=== PATIENT | female | born 1955 | race Caucasian/White ===

== ENCOUNTER 2020-05-19 10:09 | Outpatient (REF) | payer OTHER, SELFPAY ==
--- NOTE | 2020-05-19 10:13 | MM_ITS ---
EXAMINATION: MM SCREENING DIGITAL BREAST TOMOSYNTHESIS, BILATERAL CLINICAL INFORMATION: Screening. Asymptomatic. The lifetime risk of breast cancer based on the Tyrer-Cuzick Model is 5%. COMPARISON: Mammography: 05/14/2019, 05/08/2018, 05/02/2017 TECHNIQUE: Digital breast tomosynthesis is performed in both the craniocaudal and mediolateral oblique views along with computer-aided detection (CAD). Synthesized 2D images are generated from the tomosynthesis. FINDINGS: There are scattered areas of fibroglandular density (ACR BI-RADS breast composition Category b). There are no significant masses, abnormal calcifications, or other abnormalities. Parenchymal pattern is similar to prior studies. No significant changes. MM/MM tomosynthesis screening BI IMPRESSION: No mammographic evidence of malignancy. ASSESSMENT: BI-RADS 1: Negative RECOMMENDATION: Routine annual mammography screening. This patient's information was entered into a reminder system with a target due date for their next mammogram.
== END 2020-05-19 10:10 | disposition home or self-care (01) ==
LOC: HO.MAMMO 10:09
PROVIDERS: PCP Internal Medicine; Visit Provider Internal Medicine
DX: Z12.31 Encounter for screening mammogram for malignant neoplasm of breast (principal)
CPT/HCPCS: 77063; 77067

== ENCOUNTER 2020-06-29 07:11 | Outpatient (REF) | payer OTHER, SELFPAY ==
[2020-06-29 11:15] LABS: MANUAL DIFF FLAG NO
[2020-06-29 11:21] LABS: Basophils Percent Auto 0.2 % (0-2); Eosinophils Absolute Auto 0.1 X10*3/uL (0.0-0.4); Eosinophils Percent Auto 2.4 % (0-4); Hematocrit 42.7 % (37-47); Hemoglobin 13.8 g/dl (12.0-16.0); Imm Gran Abs Auto 0.01 X10*3/uL (0.00-0.03); Imm Gran Pct Auto 0.2 % (0.0-0.4); Lymphocytes Absolute Auto 1.7 X10*3/uL (1.2-4.9); Lymphocytes Percent Auto 37.9 % (20-40); Mean Corpuscular HGB Conc 32.3 g/dl (31.0-35.0); Mean Corpuscular Hemoglobin 29.9 pg (27.0-33.0); Mean Corpuscular Volume 92.6 fL (80-98); Mean Platelet Volume 10.2 fL (9.4-12.3); Monocytes Absolute Auto 0.4 X10*3/uL (0.1-1.2); Monocytes Percent Auto 7.7 % (2-11); Neutrophils Absolute Auto 2.3 X10*3/uL (2.0-8.3); Neutrophils Percent Auto 51.6 % (45-73); Platelet Count 269 X10*3/uL (160-400); Red Blood Count 4.61 X10*6/uL (4.20-5.50); Red Cell Distribution Width 12.9 % (11.0-16.0); White Blood Count 4.5 X10*3/uL (4.8-10.8)
[2020-06-29 12:07] LABS: Vitamin D 25-OH Total 38.5 ng/mL (>30)
[2020-06-29 12:20] LABS: Alanine Aminotransferase 24 U/L (0-31); Albumin Level 4.4 g/dL (3.5-5.0); Alkaline Phosphatase 67 U/L (39-117); Anion Gap 12 (12-20); Aspartate Amino Transferase 22 U/L (5-31); Bilirubin Total 1.1 mg/dL (0.0-1.0); Blood Urea Nitrogen 15 mg/dL (9-16); Calcium 9.2 mg/dL (8.4-10.2); Carbon Dioxide 30 mmol/L (22-29); Chloride 105 mmol/L (96-108); Cholesterol 224 mg/dL; Estimated Glomerular Filt Rate > 60; Glucose Fasting 77 mg/dL (60-99); HDL Cholesterol 60 mg/dL; LDL Cholesterol Calculated 144 mg/dl; Potassium 3.9 mmol/L (3.3-5.1); Sodium 143 mmol/L (135-145); Total Protein 7.1 g/dL (6.5-8.0); Triglycerides 103 mg/dL
== END 2020-06-29 07:12 | disposition home or self-care (01) ==
LOC: HO.HMGCLDS 07:11
PROVIDERS: PCP Internal Medicine; Visit Provider Internal Medicine
DX: I10 Essential (primary) hypertension (principal); E78.00 Pure hypercholesterolemia, unspecified; E55.9 Vitamin D deficiency, unspecified
CPT/HCPCS: 36415; 80053; 80061; 82306; 85025

== ENCOUNTER 2020-10-12 07:29 | Outpatient (REF) | payer OTHER, SELFPAY ==
[2020-10-12 12:06] LABS: Cholesterol 158 mg/dL; HDL Cholesterol 62 mg/dL; LDL Cholesterol Calculated 83 mg/dl; Triglycerides 66 mg/dL
== END 2020-10-12 07:30 | disposition home or self-care (01) ==
LOC: HO.HMGCLDS 07:29
PROVIDERS: PCP Internal Medicine; Visit Provider Internal Medicine
DX: E78.00 Pure hypercholesterolemia, unspecified (principal)
CPT/HCPCS: 36415; 80061

== ENCOUNTER → 2020-12-16 10:27 | Outpatient (BNVA) | payer OTHER, SELFPAY | PROVIDERS: PCP Internal Medicine; Visit Provider Internal Medicine ==

== ENCOUNTER → 2020-12-29 09:48 | Outpatient (BNVA) | payer OTHER, SELFPAY | PROVIDERS: PCP Internal Medicine; Referring Provider Internal Medicine; Visit Provider Surgery ==

== ENCOUNTER 2021-01-07 12:55 | Outpatient (REF) | payer OTHER, SELFPAY ==
--- NOTE | ~2021-01-07 | CT_ITS ---
EXAMINATION: CT CHEST WITHOUT CONTRAST CLINICAL INFORMATION: Other nonspecific abnormal finding lung field. Follow-up pulmonary nodule. COMPARISON: Previous chest CT most recent November 2018 TECHNIQUE: Multidetector volumetric CT imaging of the chest was done. Axial MIP volume rendering provided. Sagittal and coronal reformatted images were obtained. This CT examination was performed using dose optimization techniques as appropriate, variously including the following: *Automated exposure control *Adjustment of mA and/or kV according to patient size (this includes techniques or standardized protocols for targeted exams where dose is matched to indication/reason for exam; i.e. extremities or head) *Use of iterative reconstruction technique DLP: 126 mGy-cm FINDINGS: WHEELAGE CLERK: Unremarkable LUNGS: There are small calcified and noncalcified pulmonary nodules that are stable. Largest pulmonary nodule is a 4 mm calcified right upper lobe nodule axial image 125 series 5 and a 4 mm peripheral or subpleural noncalcified right middle lobe nodule axial image 382 series 5. No new pulmonary nodule is seen. MEDIASTINUM: There is mild coronary artery calcification. The ascending thoracic aorta is slightly dilated measuring 4.2 cm. This is unchanged. The mediastinum is otherwise normal. PLEURA: There is no pleural effusion. No pleural mass or thickening. AXILLA: No lymphadenopathy. UPPER ABDOMEN: There is a small cyst in the dome of the liver that is stable. OSSEOUS STRUCTURES: There is mild scoliosis of the spine and degenerative changes. CT/CT chest wo con IMPRESSION: Stable small calcified and noncalcified pulmonary nodules.
== END 2021-01-07 12:56 | disposition home or self-care (01) ==
LOC: HO.CT 12:55
PROVIDERS: PCP Internal Medicine; Visit Provider Internal Medicine
DX: R91.8 Other nonspecific abnormal finding of lung field (principal)
CPT/HCPCS: 71250

== ENCOUNTER 2021-01-17 06:57 | Outpatient (REF) | payer OTHER, SELFPAY ==
[2021-01-17 12:04] LABS: Alanine Aminotransferase 35 U/L (0-31); Albumin Level 4.4 g/dL (3.5-5.0); Alkaline Phosphatase 65 U/L (39-117); Anion Gap 14 (12-20); Aspartate Amino Transferase 27 U/L (5-31); Bilirubin Total 1.5 mg/dL (0.0-1.0); Blood Urea Nitrogen 16 mg/dL (9-16); Calcium 9.4 mg/dL (8.4-10.2); Carbon Dioxide 26 mmol/L (22-29); Chloride 106 mmol/L (96-108); Cholesterol 175 mg/dL; Estimated Glomerular Filt Rate > 60; Glucose Fasting 82 mg/dL (60-99); HDL Cholesterol 59 mg/dL; LDL Cholesterol Calculated 98 mg/dl; Sodium 142 mmol/L (135-145); Total Protein 7.2 g/dL (6.5-8.0); Triglycerides 91 mg/dL
== END 2021-01-17 06:58 | disposition home or self-care (01) ==
LOC: HO.HMGCLDS 06:57
PROVIDERS: PCP Internal Medicine; Visit Provider Internal Medicine
DX: E78.00 Pure hypercholesterolemia, unspecified (principal); I10 Essential (primary) hypertension
CPT/HCPCS: 36415; 80053; 80061

== ENCOUNTER 2021-01-28 06:16 | Day surgery (SDC) | payer OTHER, SELFPAY ==
[2021-01-24 09:53] VITALS: BMI 24.6
--- NOTE | 2021-01-27 08:29 | HO.ANESPROP2 ---
Documented by User: Kristina Torres NP 01/27/21 08:30 HPI - Anesthesia Eval Consult details Narrative: 65yo F for Colonoscopy, Poss Polypectomy PMFSH Active Problems Active Problems: All Active Problems (Updated 01/24/21 @ 09:51 by Valorie Escobar RN) History of adenomatous polyp of colon (Acute) Pulmonary nodules (Acute) Past Medical History Medical History Elevated cholesterol History of adenomatous polyp of colon HTN (hypertension) Pulmonary nodules Surgical History Surgical History H/O colonoscopy History of bunionectomy History of esophagogastroduodenoscopy (EGD) Hx of appendectomy Social History Social History Patient Tobacco Use Status: Former Tobacco user Years Smoked: 5 Use of substances other than those prescribed or required for medical reasons: No Have you been hit, kicked, punched, or otherwise hurt by someone within the past year? If so, by whom?: No Are you DNR?: No Advance Directives: No Advance Directives Information Provided: Yes Recently lost weight without trying: No Nutrition Risks: No Nutritional Risk Patient : No Meds Allergies Allergy/AdvReac Type Severity Reaction Status Date / Time No Known Allergies Allergy Verified 12/29/20 10:19 Home Medications Medication Instructions Recorded Confirmed Last Taken Type coenzyme Q10 75 mg capsule (Ultra 75 mg PO DAILY 12/16/20 01/24/21 Unknown History CoQ10) latanoprost 0.005 % eye drops 1 drp OPHTHALMIC (EYE) BEDTIME 12/16/20 01/24/21 Unknown History losartan 50 mg tablet 50 mg PO DAILY 12/16/20 01/24/21 Unknown History multivitamin (Daily Multi-Vitamin) 1 tab PO DAILY 12/16/20 01/24/21 Unknown History rosuvastatin 5 mg tablet 5 mg PO DAILY 12/16/20 01/24/21 Unknown History Exam Exam Date and Time: January 27, 2021 0829 Height,Weight and Vital Signs: Height 5 ft 4.5 in Weight 66.224 kg Pertinent Lab Results Pertinent Lab Results: Laboratory Tests 06/29/20 01/17/21 07:18 07:04 WBC 4.5 L Hgb 13.8 Hct 42.7 Plt Count 269 Sodium 142 Potassium 4.0 Chloride 106 Carbon Dioxide 26 BUN 16 Creatinine 0.73 Assessment and Plan Assessment Anesthesia Assessment: Chart Reviewed Documented by User: Natacha Holt MD 01/28/21 07:51 [facility] Past Medical History Medical History Elevated cholesterol History of adenomatous polyp of colon HTN (hypertension) Pulmonary nodules Family History Family history of problems with anesthesia: No Surgical History Surgical History H/O colonoscopy History of bunionectomy History of esophagogastroduodenoscopy (EGD) Hx of appendectomy History of Problems with Anesthesia: No Social History Social History Patient Tobacco Use Status: Former Tobacco user Years Smoked: 5 Use of substances other than those prescribed or required for medical reasons: No Have you been hit, kicked, punched, or otherwise hurt by someone within the past year? If so, by whom?: No Are you DNR?: No Advance Directives: No Advance Directives Information Provided: Yes Recently lost weight without trying: No Nutrition Risks: No Nutritional Risk Patient : No Meds Allergies Allergy/AdvReac Type Severity Reaction Status Date / Time No Known Allergies Allergy Verified 12/29/20 10:19 Home Medications Medication Instructions Recorded Confirmed Last Taken Type coenzyme Q10 75 mg capsule (Ultra 75 mg PO DAILY 12/16/20 01/24/21 Unknown History CoQ10) latanoprost 0.005 % eye drops 1 drp OPHTHALMIC (EYE) BEDTIME 12/16/20 01/24/21 Unknown History losartan 50 mg tablet 50 mg PO DAILY 12/16/20 01/24/21 Unknown History multivitamin (Daily Multi-Vitamin) 1 tab PO DAILY 12/16/20 01/24/21 Unknown History rosuvastatin 5 mg tablet 5 mg PO DAILY 12/16/20 01/24/21 Unknown History Exam Height,Weight and Vital Signs: Height 5 ft 4.5 in Weight 66.224 kg Vital Signs Temp Pulse Resp BP Pulse Ox 01/28/21 06:23 98 F 74 18 150/96 H 97 Airway Mallampati Class: II TM Dist: >3cm Neck ROM: Full Heart: RRR Lungs: CTAB Assessment and Plan Assessment Anesthesia Assessment: Anesthesia Plan Discussed Final Anesthetic Review Family History of Problems with Anesthesia: No History of Problems with Anesthesia: No NPO: Yes ASA Class: II Final Preanesthetic Review: No Changes in Pt Med Stat, Meds/Allgs Chart Reviewed, Consent Obtained/Reviewed and Anes Risks/Benef Reviewed Patient Risk: Low Procedure Risk: Low Assessment/Block/Sedation in SS: Assess/Block/Sedation-SS Anesthetic Plan Anesthetic Plan: MAC: Disposition: Standard PACU
[2021-01-28 06:23] VITALS: BP 150/96; PULSE 74; RESP 18; TEMP 36.6; O2SAT 97
[2021-01-28] MEDS: Lactated Ringers 1,000 ML 100 ML IVCONT (06:45)
--- NOTE | 2021-01-28 07:16 | MHC.SHP ---
Pre-Procedural Eval Section A Date of Service: 01/28/21 Section B Chief Complaint: History of adenomatous polyp of colon Allergies: Allergies Allergy/AdvReac Type Severity Reaction Status Date / Time No Known Allergies Allergy Verified 12/29/20 10:19 Plan I have reviewed the history and physical and performed a pertinent physical examination on my patient. No changes have occurred unless specified.
--- NOTE | 2021-01-28 08:23 | W.PM.OPN ---
Operative Note Operative Note Date of Service: 01/28/21 Narrative: Preop diagnosis: History of adenomatous polyp Postop diagnosis: 1. Two small polyps each about three to four mm in size, in the mid right colon, both removed with cold forceps 2. Sigmoid diverticulosis Procedure: Colonoscopy, with polypectomy x2 using cold forceps Surgeon: Kolby Orozco MD The patient is a [age] year female who a polyp in the cecum in the past. She actually undergoes colonoscopy every five years in view of a family hx of colon cancer. She understood the technique of colonoscopy and she was aware of the risks, benefits, and alternatives. She was broought to the OR and placed in left lateral decub position under MAC. A surgical timeout was one. A full digital rectal exam was done and there was no palpable anal mass or induration. The tip of the Olympus colonoscope was gently introduced into the anal orifice and advanced with insufflation all the way to the cecm.We had to apply periodic splinting of the abdominal wall in view of looping. I was eventually able to intubate the cecum. the cecum was identified via visualization of the ileocecal valve as well as the appendiceal orifice. The cecal mucose was unremarkable. There was no polyp seen neear the appendiceal orifice. The scope was gradually withdrawn with careful examination of the entire colonic mucosa being done with scope withdrawal. It was unlikely that any lesion may have been missed. There were 2 small polyps in the mid right colon adjacent to each other, each about 3-4 mm in size. Both of these were removed using multiple bites of the cold snare. There was moderate diverticulosis of the sigmoid. The rectum was unremarkable. The anal shelf and anal canal were unremarkable and there were no lesions seen. The scope was then withdrawn completely with dessuflation. The patient tolerated the procedure well. There were no complications noted. Depending on the path report, she will continue to have screening colonmoscopy every 5 years.
[2021-01-28 08:26] VITALS: BP 129/79; PULSE 76; RESP 14; TEMP 36.6; O2SAT 100
--- NOTE | 2021-01-28 08:32 | PM.OP ---
Brief Operative Note Date of Service: 01/28/21 Pre-op diagnosis: hx of adenoma Post-op diagnosis: other (small polyps x 2 in the right colon, diverticulosis) Procedure: colonoscopy, polypectomy x 2 with forceps Surgeon: Kolby Orozco MD Anesthesia: MAC Was an Wallpaper Inspector used for this Procedure?: No Estimated blood loss (mL): 0 Pathology: other (polyps) Condition: stable Disposition: PACU
[2021-01-28 08:42] VITALS: BP 154/85; PULSE 72; RESP 18; TEMP 36.6; O2SAT 100
== END 2021-01-28 10:57 | disposition home or self-care (01) ==
LOC: HO.SSS 06:16
PROVIDERS: PCP Internal Medicine; Visit Provider Surgery
PROC: 0DJD8ZZ Inspection of Lower Intestinal Tract, Via Natural or Artificial Opening Endoscopic (ICD-10-PCS; CPT 45378; principal; 2021-01-28 07:30)
DX: Z12.11 Encounter for screening for malignant neoplasm of colon (principal); D12.2 Benign neoplasm of ascending colon; K57.30 Diverticulosis of large intestine without perforation or abscess without bleeding; Z86.010 Personal history of colon polyps; Z80.0 Family history of malignant neoplasm of digestive organs
CPT/HCPCS: 45380; 88305

== ENCOUNTER → 2021-02-09 10:43 | Outpatient (BNVA) | payer OTHER, SELFPAY | PROVIDERS: PCP Internal Medicine; Referring Provider Internal Medicine; Visit Provider Surgery ==

== ENCOUNTER 2021-05-20 10:17 | Outpatient (REF) | payer OTHER, SELFPAY ==
--- NOTE | ~2021-05-20 | MM_ITS ---
EXAMINATION: MM SCREENING DIGITAL BREAST TOMOSYNTHESIS, BILATERAL CLINICAL INFORMATION: Screening. Asymptomatic. The lifetime risk of breast cancer based on the Tyrer-Cuzick Model is 4%. COMPARISON: Mammography: 05/19/2020, 05/14/2019, 05/08/2018, 05/02/2017, 04/26/2016 TECHNIQUE: Digital breast tomosynthesis is performed in both the craniocaudal and mediolateral oblique views along with computer-aided detection (CAD). Synthesized 2D images are generated from the tomosynthesis. FINDINGS: There are scattered areas of fibroglandular density (ACR BI-RADS breast composition Category b). The right breast is unremarkable. There is no interval mass or architectural abnormality. Neither breast shows abnormal calcifications. The axilla and skin contours are unremarkable. Left breast has 0.5 cm circumscribed nodule anterior upper quadrant 5 cm from nipple approximately 8:00 position, more conspicuous on current study. Margins are smooth. This may represent a small cyst. Patient will be recalled for additional imaging. MM/MM tomosynthesis screening BI IMPRESSION: 1. Left: 0.5 cm nodule 8:00 position 5 cm from nipple. 2. Right: No mammographic evidence of malignancy. ASSESSMENT: BI-RADS 0: Incomplete - Need Additional Imaging Evaluation RECOMMENDATION: 1. Targeted ultrasound left breast. 2. Radiology department staff will contact the patient for additional imaging. This patient's information was entered into a reminder system with a target due date for their next mammogram.
== END 2021-05-20 10:18 | disposition home or self-care (01) ==
LOC: HO.MAMMO 10:17
PROVIDERS: PCP Internal Medicine; Visit Provider Internal Medicine
DX: Z12.31 Encounter for screening mammogram for malignant neoplasm of breast (principal)
CPT/HCPCS: 77063; 77067

== ENCOUNTER 2021-05-26 13:00 | Outpatient (REF) | payer OTHER, SELFPAY ==
--- NOTE | ~2021-05-26 | US_ITS ---
EXAMINATION: US DIAGNOSTIC ULTRASOUND BREAST, LEFT CLINICAL INFORMATION: Recall from screening for 0.5 cm circumscribed nodule anterior medial left breast 8:00 position with smooth margins, likely small cyst. COMPARISON: Mammography 05/20/2021, 05/19/2020. TECHNIQUE: Ultrasound left breast is targeted to the medial breast. Grayscale imaging and color Doppler are performed without and with harmonics. FINDINGS: There is a 0.5 cm cyst corresponding to the finding on mammography 9:00 position within 5 cm from nipple. Margins are circumscribed. There is increased through-transmission of sound and no associated internal color flow. There is no solid mass or architectural abnormality or focal duct ectasia. Results are discussed with the patient at time of visit. US/US breast LT limited IMPRESSION: Incidental 5 mm simple cyst medial left breast corresponding to finding on recent mammography. ASSESSMENT: BI-RADS 2: Benign RECOMMENDATION: Routine annual mammography screening. This patient's information was entered into a reminder system with a target due date for their next mammogram.
== END 2021-05-26 13:01 | disposition home or self-care (01) ==
LOC: HO.MAMMO 13:00
PROVIDERS: PCP Internal Medicine; Visit Provider Internal Medicine
DX: N63.24 Unspecified lump in the left breast, lower inner quadrant (principal)
CPT/HCPCS: 76642

== ENCOUNTER 2022-02-11 06:39 | Outpatient (REF) | payer OTHER, SELFPAY ==
[2022-02-11 11:22] LABS: MANUAL DIFF FLAG NO
[2022-02-11 11:34] LABS: Basophils Percent Auto 0.5 % (0-2); Eosinophils Absolute Auto 0.2 X10*3/uL (0.0-0.4); Eosinophils Percent Auto 2.7 % (0-4); Hematocrit 42.7 % (37.0-47.0); Hemoglobin 14.1 g/dl (12.0-16.0); Imm Gran Abs Auto 0.01 X10*3/uL (0.00-0.03); Imm Gran Pct Auto 0.2 % (0.0-0.4); Lymphocytes Absolute Auto 1.6 X10*3/uL (1.2-4.9); Lymphocytes Percent Auto 29.3 % (20-40); Mean Corpuscular Hemoglobin 30.5 pg (27.0-33.0); Mean Corpuscular Volume 92.2 fL (80.0-98.0); Mean Platelet Volume 9.7 fL (9.4-12.3); Monocytes Absolute Auto 0.6 X10*3/uL (0.1-1.2); Neutrophils Absolute Auto 3.1 x10*3/uL (2.0-8.3); Neutrophils Percent Auto 56.3 % (45-73); Platelet Count 266 X10*3/uL (160-400); Red Blood Count 4.63 X10*6/uL (4.20-5.50); Red Cell Distribution Width 12.9 % (11.0-16.0); White Blood Count 5.6 X10*3/uL (4.8-10.8)
[2022-02-11 11:57] LABS: Alanine Aminotransferase 27 U/L (0-31); Albumin Level 4.5 g/dL (3.5-5.0); Alkaline Phosphatase 72 U/L (39-117); Anion Gap 13 (12-20); Aspartate Amino Transferase 23 U/L (5-31); Bilirubin Total 1.5 mg/dL (0.0-1.0); Blood Urea Nitrogen 14 mg/dL (9-16); Calcium 9.3 mg/dL (8.4-10.2); Carbon Dioxide 28 mmol/L (22-29); Chloride 104 mmol/L (96-108); Cholesterol 165 mg/dL; Estimated Glomerular Filt Rate > 60; Glucose Fasting 92 mg/dL (60-99); HDL Cholesterol 60 mg/dL; LDL Cholesterol Calculated 88 mg/dl; Potassium 3.9 mmol/L (3.3-5.1); Sodium 141 mmol/L (135-145); Total Protein 7.3 g/dL (6.5-8.0); Triglycerides 89 mg/dL
== END 2022-02-11 06:40 | disposition home or self-care (01) ==
LOC: HO.HMGCLDS 06:39
PROVIDERS: PCP Internal Medicine; Visit Provider Internal Medicine
DX: Z00.00 Encounter for general adult medical examination without abnormal findings (principal)
CPT/HCPCS: 36415; 80053; 80061; 85025

== ENCOUNTER 2022-05-26 09:44 | Outpatient (REF) | payer OTHER, SELFPAY ==
--- NOTE | ~2022-05-26 | MM_ITS ---
EXAMINATION: MM SCREENING DIGITAL BREAST TOMOSYNTHESIS, BILATERAL CLINICAL INFORMATION: Screening. Asymptomatic. The lifetime risk of breast cancer based on the Tyrer-Cuzick Model is 4.4%. COMPARISON: Mammography: May 20, 2021 and studies dating back to April 21, 2015 TECHNIQUE: Digital breast tomosynthesis is performed in both the craniocaudal and mediolateral oblique views along with computer-aided detection (CAD). Synthesized 2D images are generated from the tomosynthesis. FINDINGS: There are scattered areas of fibroglandular density (ACR BI-RADS breast composition Category b). There are no new significant masses, abnormal calcifications, or other abnormalities. There is again noted to be circumscribed density anterior inferior aspect of the left breast which was shown to represent a cyst on previous ultrasound. MM/MM tomosynthesis screening BI IMPRESSION: No significant changes from prior exam. ASSESSMENT: BI-RADS 2: Benign RECOMMENDATION: Routine annual mammography screening. This patient's information was entered into a reminder system with a target due date for their next mammogram.
== END 2022-05-26 09:45 | disposition home or self-care (01) ==
LOC: HO.MAMMO 09:44
PROVIDERS: PCP Internal Medicine; Visit Provider Internal Medicine
DX: Z12.31 Encounter for screening mammogram for malignant neoplasm of breast (principal)
CPT/HCPCS: 77063; 77067

== ENCOUNTER 2022-09-28 10:36 | Outpatient (REF) | payer OTHER, SELFPAY ==
[2022-09-28 11:32] LABS: Anion Gap 10 (12-20); Blood Urea Nitrogen 18 mg/dL (9-16); Calcium 9.6 mg/dL (8.4-10.2); Carbon Dioxide 30 mmol/L (22-29); Chloride 106 mmol/L (96-108); Estimated Glomerular Filt Rate > 60; Glucose Random 88 mg/dL (60-115); Potassium 4.2 mmol/L (3.3-5.1); Sodium 142 mmol/L (135-145)
== END 2022-09-28 10:37 | disposition home or self-care (01) ==
LOC: HO.10HDL 10:36
PROVIDERS: Visit Provider Internal Medicine
DX: I10 Essential (primary) hypertension (principal)
CPT/HCPCS: 36415; 80048

== ENCOUNTER 2023-02-05 06:46 | Outpatient (REF) | payer OTHER, SELFPAY ==
[2023-02-05 11:25] LABS: MANUAL DIFF FLAG NO
[2023-02-05 11:39] LABS: Basophils Percent Auto 0.4 % (0-2); Eosinophils Absolute Auto 0.2 X10*3/uL (0.0-0.4); Eosinophils Percent Auto 4.4 % (0-4); Hematocrit 41.6 % (37.0-47.0); Hemoglobin 13.5 g/dl (12.0-16.0); Imm Gran Abs Auto 0.01 X10*3/uL (0.00-0.03); Imm Gran Pct Auto 0.2 % (0.0-0.4); Lymphocytes Absolute Auto 1.9 X10*3/uL (1.2-4.9); Lymphocytes Percent Auto 38.3 % (20-40); Mean Corpuscular HGB Conc 32.5 g/dl (31.0-35.0); Mean Corpuscular Hemoglobin 30.3 pg (27.0-33.0); Mean Corpuscular Volume 93.5 fL (80.0-98.0); Monocytes Absolute Auto 0.4 X10*3/uL (0.1-1.2); Monocytes Percent Auto 6.9 % (2-11); Neutrophils Absolute Auto 2.5 x10*3/uL (2.0-8.3); Neutrophils Percent Auto 49.8 % (45-73); Platelet Count 285 X10*3/uL (160-400); Red Blood Count 4.45 X10*6/uL (4.20-5.50); Red Cell Distribution Width 12.8 % (11.0-16.0)
[2023-02-05 12:45] LABS: Alanine Aminotransferase 17 U/L (0-31); Albumin Level 4.2 g/dL (3.5-5.0); Alkaline Phosphatase 61 U/L (39-117); Anion Gap 14 (12-20); Aspartate Amino Transferase 19 U/L (5-31); Blood Urea Nitrogen 16 mg/dL (9-16); Calcium 9.5 mg/dL (8.4-10.2); Carbon Dioxide 26 mmol/L (22-29); Chloride 106 mmol/L (96-108); Cholesterol 157 mg/dL (<200); Estimated Glomerular Filt Rate > 60; Glucose Fasting 80 mg/dL (60-99); HDL Cholesterol 54 mg/dL (>40); LDL Cholesterol Calculated 87 mg/dL (<100); Potassium 3.8 mmol/L (3.3-5.1); Sodium 142 mmol/L (135-145); Total Protein 7.2 g/dL (6.5-8.0); Triglycerides 80 mg/dL (<150)
[2023-02-05 12:46] LABS: Vitamin D 25-OH Total 67.3 ng/mL (>30)
== END 2023-02-05 06:47 | disposition home or self-care (01) ==
LOC: HO.HMGCLDS 06:46
PROVIDERS: PCP Internal Medicine; Visit Provider Internal Medicine
DX: I10 Essential (primary) hypertension (principal); E78.00 Pure hypercholesterolemia, unspecified; K57.90 Diverticulosis of intestine, part unspecified, without perforation or abscess without bleeding; M85.80 Other specified disorders of bone density and structure, unspecified site
CPT/HCPCS: 36415; 80053; 80061; 82306; 85025

== ENCOUNTER → 2023-03-26 10:50 | Outpatient (REF) | payer OTHER, SELFPAY ==
--- NOTE | 2023-03-26 10:52 | CA_ITS ---
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 The calculated ejection fraction is 65% by biplane method. - There is moderate septal and moderate basal asymmetric hypertrophy. - Mildly increased right ventricular cavity size. - No obvious valvular pathology seen on this study. - There is mild dilatation of the sinuses of Valsalva measuring 4.20 cm and moderate dilatation of the ascending aorta measuring 4.50 cm. Consider CTA for further evaluation. Findings Left Ventricle Normal left ventricular cavity size. The left ventricular systolic function is normal. The calculated ejection fraction is 65% by biplane method. There is no evidence of regional wall motion abnormalities. Diastolic function is normal for age. There is moderate septal and moderate basal asymmetric hypertrophy. LV peak GLS -20.7%. Right Ventricle Mildly increased right ventricular cavity size. There is normal right ventricular systolic function. Atria The left atrium is normal in size. The right atrium is mildly dilated. Aortic Valve There is a normal trileaflet aortic valve. There is mild calcification of the aortic valve. There is no aortic valve stenosis. There is no aortic valve regurgitation. Mitral Valve The mitral valve appears normal. There is trace mitral valve regurgitation. There is no mitral valve stenosis. Pulmonic Valve The pulmonic valve is likely normal. Tricuspid Valve There is trace tricuspid valve regurgitation. There is no evidence of pulmonary hypertension. Great Vessels There is mild dilatation of the sinuses of Valsalva measuring 4.20 cm and moderate dilatation of the ascending aorta measuring 4.50 cm. Venous The inferior vena cava is normal in size and collapses greater than 50% with inspiration. Pericardium/Pleural There is no evidence of pericardial effusion. Prior Study Comparison Changes noted compared to prior study dated: 09/27/2016. Increase in ascending aortic size. Recommendations, Care & Conclusions No obvious valvular pathology seen on this study. Measurements 2D Linear Measurements IVSd: 1.29 0.6-0.9/0.6-1.0 cm LVIDd: 3.88 3.9-5.3/4.2-5.9 cm LVIDd Index: 2.28 2.4-3.2/2.2-3.1 cm/m2 LVIDs: 1.94 2.0-3.6 cm LVPWd: 0.90 0.7-1.1 cm LA Diam: 3.40 2.7-3.8/3.0-4.0 cm LAIDs Index: 2.00 1.5-2.3 cm/m2 LV Mass: 172.31 67-162/88-224 g LV Mass Index: 101.36 43-95/49-115 g/m2 LVOT Diam: 2.10 3.0+(-)1.3 cm 2D Systolic Function EF 4C: 68.10 >55% EF 2C: 61.40 >55% EF BiP: 64.70 >55% Mitral Valve MV Pk E: 0.78 MV PK A: 0.77 MV Decel Time: 227.00 E/A: 1.00 E'Lateral: 8.81 E'Medial: 6.31 E/E' Med: 12.40 E/E' Lat: 8.90 PHT: 66.00 MVA PHT: 3.33 Decel [place]: 3.44 Aortic Valve AoV Pk Eugenio: 1.15 AoV Mn Eugenio: 0.78 AoV VTI: 0.27 AoV Pk Grad: 5.00 Aov Mn Grad: 3.00 CHRISTOPHER Cont.VTI: 2.93 LVOT LVOT Pk Eugenio: 1.06 LVOT Mn Eugenio: 0.67 LVOT VTI: 0.23 LVOT Pk Grad: 4.00 LVOT Mn Grad: 2.00 LVOT Diam: 2.10 LVOT Area: 3.46 Diastolic Function MV Pk E: 0.78 MV Pk A: 0.77 E/A: 1.00 E'Medial: 6.31 E/E' Med: 12.40 E' Laterial: 8.81 E/E' Lat: 8.90 Right Ventricle TAPSE (mm): 29.30 TVS' Eugenio: 17.80 Tricuspid Valve TR Pk Eugenio: 2.04 TR Pk Grad: 17.00 RA Press: 3.00 RVSP: 20.00 Great Vessels Aorta Sinus of Valsalva: 4.20 2.0-3.5 cm Ao Asc: 4.50 2.1-3.4 cm Pulmonary Valve PV Pk Eugenio: 0.83 Peak PV Grad: 3.00 Updated in Other Vendor System with Status of Final Kvng Wolf MD electronically signed on 03/26/2023 12:38:09 PM with status of Final
== END ==
LOC: HO.CARD 10:50
PROVIDERS: PCP Internal Medicine; Visit Provider Internal Medicine
DX: I77.810 Thoracic aortic ectasia (principal)
CPT/HCPCS: 93306; 93356

== ENCOUNTER → 2023-03-26 10:52 | Outpatient (BNV) | payer OTHER, SELFPAY | PROVIDERS: PCP Internal Medicine; Visit Provider Internal Medicine | DX: I35.8 Other nonrheumatic aortic valve disorders (principal) | CPT/HCPCS: 93306 ==

== ENCOUNTER 2023-04-05 10:17 | Outpatient (REF) | payer OTHER, SELFPAY ==
--- NOTE | ~2023-04-05 | MM_ITS ---
EXAMINATION: BONE DENSITOMETRY CLINICAL INDICATION: Menopause. COMPARISON: Previous BD dated 10/29/2019 and baseline BD dated 09/10/2008. TECHNIQUE: Using a [employer] DXA System (software version: 13.1) manufactured by [employer], dual-energy x-ray absorptiometry was performed of the lumbar spine and left hip. The images are of good technical quality. Summary results are attached. FINDINGS: LEFT FEMUR, NECK: Current: BMD 0.745 g/cm2, Z-score -0.5, T-score -2.1, osteopenia. Prior: BMD 0.750 g/cm2. Baseline: BMD 0.852 g/cm2. LEFT FEMUR, TOTAL: Current: BMD 0.784 g/cm2, Z-score -0.4, T-score -1.8, osteopenia, 5.4% decrease from previous, 16.8% decrease from baseline (<5% change is not significant). Prior: BMD 0.829 g/cm2. Baseline: BMD 0.942 g/cm2. AP SPINE L1-L4: Current: BMD 0.770 g/cm2, Z-score -1.8, T-score -3.4, osteoporosis, 13.5% decrease from previous, 18.7% decrease from baseline (<5% change is not significant). Prior: BMD 0.890 g/cm2. Baseline: BMD 0.947 g/cm2. IDENTIFIED RISK FACTORS: Menopause, height loss, hysterectomy, osteoporosis, family history (parent hip fracture) common bilateral oophorectomy. HISTORY OF FRACTURE: None listed. MEDICATIONS: Multivitamin, vitamin D. MM/XR DEXA axial skeleton IMPRESSION: 1. DIAGNOSIS: Osteoporosis based on the lowest T-score value of -3.4 in the lumbar spine applying World Health Organization criteria. 2. 10-YEAR FRACTURE RISK PREDICTION, FRAX: According to the guidelines, FRAX calculation should only be performed on patients in the osteopenia bone density category. Therefore, FRAX was not performed on this patient. 3. Treatment Recommendations: NOF guidelines recommend consideration for treatment in postmenopausal women and men age 50 and older presenting with the following: -A hip or vertebral (clinical or morphometric) fracture. -T-score less than or equal to -2.5 at the femoral neck or spine after appropriate evaluation to exclude secondary causes. -Low bone mass at the hip or spine and a 10-year fracture probability by FRAX of greater than or equal to 3% for hip fracture or greater than or equal to 20% for major osteoporotic fracture based on the [place] adapted WHO algorithm. 4. Other Recommendations: All treatment decisions require clinical judgment and consideration of individual patient factors, including patient preferences, comorbidities, previous drug use, risk factors not captured in the FRAX model (e.g. frailty, falls, vitamin D deficiency, increased bone turnover, interval significant decline in bone density) and possible under or overestimation of fracture risk by FRAX. Additional medical evaluation for secondary cause of low bone mineral density may be appropriate. FUTURE SCAN RECOMMENDATION: People with diagnosed cases of osteoporosis or at high risk for fracture should have regular bone mineral density tests. For patients eligible for Medicare, routine testing is allowed once every 2 years. The testing frequency can be increased to one year for patients who have rapidly progressing disease, those who are receiving or discontinuing medical therapy to restore bone mass, or have additional risk factors.
== END 2023-04-05 10:18 | disposition home or self-care (01) ==
LOC: HO.MAMMO 10:17
PROVIDERS: PCP Internal Medicine; Visit Provider Internal Medicine
DX: Z13.820 Encounter for screening for osteoporosis (principal); Z78.0 Asymptomatic menopausal state
CPT/HCPCS: 77080

== ENCOUNTER 2023-05-29 09:32 | Outpatient (REF) | payer OTHER, SELFPAY | END 2023-05-29 09:33 | disposition home or self-care (01) | LOC: HO.MAMMO 09:32 | PROVIDERS: PCP Internal Medicine; Visit Provider Internal Medicine | DX: Z12.31 Encounter for screening mammogram for malignant neoplasm of breast (principal) | CPT/HCPCS: 77063; 77067 ==

== ENCOUNTER → 2023-05-29 09:45 | Outpatient (BNV) | payer OTHER, SELFPAY | PROVIDERS: PCP Internal Medicine; Visit Provider Radiology Diagnostic Radiology | DX: Z12.31 Encounter for screening mammogram for malignant neoplasm of breast (principal) | CPT/HCPCS: 77063; 77067 ==

== ENCOUNTER 2023-10-11 08:20 | Outpatient (REF) | payer OTHER, SELFPAY ==
--- NOTE | ~2023-10-11 | US_ITS ---
EXAMINATION: US RETROPERITONEAL LIMITED (AORTA) CLINICAL INFORMATION: Thoracic aortic ectasia. COMPARISON: CT chest 01/07/2021. TECHNIQUE: Almeida-scale, color Doppler and spectral Doppler evaluation of the abdominal aorta. FINDINGS: The measurements of the aorta in maximum AP and transverse dimensions respectively are as follows: Proximal: 2.7 x 2.5 cm. Mid: 2.4 x 2.4 cm. Distal: 1.9 x 2.0 cm. PSV: 65 cm/s. The measurements of the common iliac arteries in maximum AP and TRV dimensions are as follows: Right Common Iliac Artery: 1.1 x 1.4 cm. Left Common Iliac Artery: 1.2 x 1.3 cm. US/US abdominal aortic aneurysm IMPRESSION: No abdominal aortic aneurysm.
== END 2023-10-11 08:21 | disposition home or self-care (01) ==
LOC: HO.HMGCX 08:20
PROVIDERS: PCP Internal Medicine; Visit Provider Internal Medicine
DX: I77.810 Thoracic aortic ectasia (principal)
CPT/HCPCS: 76706

== ENCOUNTER → 2024-02-13 09:57 | Outpatient (REF) | payer OTHER, SELFPAY ==
--- NOTE | 2024-02-13 10:00 | CA_ITS ---
Transthoracic Echocardiogram Patient (Last, First, Middle): Mai Brady E Gender: Female Date of : 1955 Age: 68 Procedure Date: 02/13/2024 Procedure Type: Transthoracic Echocardiogram Location: OP Height: 162.56 cm Weight: 65.32 kg BSA: 1.70 m2 Heart Rate: bpm BP: 130 / 84 mmHg Independent Living Advisor: TO Referring MD: Kolby Cuadra MD Symptoms: AORTIC ECTASIA,UNSPECIFIED SITE Study Quality: Adequate ECG Rhythm: Sinus Conclusions: - The left ventricular systolic function is normal. The calculated ejection fraction is 62% by biplane method. - No obvious valvular pathology seen on this study. - There is moderate dilatation of the ascending aorta measuring 4.40 cm. Findings Left Ventricle Normal left ventricular cavity size. The left ventricular systolic function is normal. The calculated ejection fraction is 62% by biplane method. There is no evidence of regional wall motion abnormalities. Diastolic function is normal for age. There is moderate septal asymmetric hypertrophy. Right Ventricle Normal right ventricular cavity size and systolic function. Atria Both atria are normal in size. Aortic Valve There is a normal trileaflet aortic valve. There is no aortic valve stenosis. There is no aortic valve regurgitation. Mitral Valve The mitral valve appears normal. There is no mitral valve regurgitation. There is no mitral valve stenosis. Pulmonic Valve The pulmonic valve is likely normal. Tricuspid Valve Normal tricuspid valve structure. There is trace tricuspid valve regurgitation. There is no evidence of pulmonary hypertension. Great Vessels The aortic arch is normal in size. There is moderate dilatation of the ascending aorta measuring 4.40 cm. Moderate plaque is seen in the sino tubular ridge. Venous The inferior vena cava is normal in size and collapses greater than 50% with inspiration. Pericardium/Pleural There is no evidence of pericardial effusion. Prior Study Comparison No significant change compared to prior study dated: 03/26/2023. Recommendations, Care & Conclusions No obvious valvular pathology seen on this study. Measurements 2D Linear Measurements IVSd: 1.46 0.6-0.9/0.6-1.0 cm LVIDd: 3.95 3.9-5.3/4.2-5.9 cm LVIDd Index: 2.32 2.4-3.2/2.2-3.1 cm/m2 LVIDs: 2.79 2.0-3.6 cm LVPWd: 0.76 0.7-1.1 cm LA Diam: 3.40 2.7-3.8/3.0-4.0 cm LAIDs Index: 2.00 1.5-2.3 cm/m2 LV Mass: 180.54 67-162/88-224 g LV Mass Index: 106.20 43-95/49-115 g/m2 LVOT Diam: 2.10 3.0+(-)1.3 cm 2D Systolic Function EF 4C: 67.30 >55% EF 2C: 57.00 >55% EF BiP: 62.10 >55% Mitral Valve MV Pk E: 0.73 MV PK A: 0.61 MV Decel Time: 260.00 E/A: 1.20 E'Lateral: 7.94 E'Medial: 5.33 E/E' Med: 13.80 E/E' Lat: 9.20 PHT: 76.00 MVA PHT: 2.89 Decel Stutsman: 2.82 Aortic Valve AoV Pk Eugenio: 1.26 AoV Mn Eugenio: 0.86 AoV VTI: 0.25 AoV Pk Grad: 6.00 Aov Mn Grad: 3.00 CHRISTOPHER Cont.VTI: 2.90 LVOT LVOT Pk Eugenio: 0.89 LVOT Mn Eugenio: 0.62 LVOT VTI: 0.21 LVOT Pk Grad: 3.00 LVOT Mn Grad: 2.00 LVOT Diam: 2.10 LVOT Area: 3.46 Diastolic Function MV Pk E: 0.73 MV Pk A: 0.61 E/A: 1.20 E'Medial: 5.33 E/E' Med: 13.80 E' Laterial: 7.94 E/E' Lat: 9.20 Right Ventricle TAPSE (mm): 23.00 TVS' Eugenio: 13.10 Tricuspid Valve TR Pk Eugenio: 2.02 TR Pk Grad: 16.00 RA Press: 3.00 RVSP: 19.00 Great Vessels Aorta Sinus of Valsalva: 4.03 2.0-3.[address] Ridge: 2.88 1.7-3.4 cm Ao Asc: 4.40 2.1-3.4 cm Ao Arch: 3.50 Updated in Other Vendor System with Status of Final Kvng Wolf MD electronically signed on 02/13/2024 3:40:10 PM with status of Final
== END ==
LOC: HO.CARD 09:57
PROVIDERS: PCP Internal Medicine; Visit Provider Internal Medicine
DX: I77.819 Aortic ectasia, unspecified site (principal)
CPT/HCPCS: 93306

== ENCOUNTER → 2024-02-13 10:00 | Outpatient (BNV) | payer OTHER, SELFPAY | PROVIDERS: PCP Internal Medicine; Visit Provider Internal Medicine | DX: I42.2 Other hypertrophic cardiomyopathy (principal); I77.810 Thoracic aortic ectasia | CPT/HCPCS: 93306 ==

== ENCOUNTER 2024-03-04 06:20 | Outpatient (REF) | payer OTHER, SELFPAY ==
[2024-03-04 10:11] LABS: MANUAL DIFF FLAG NO
[2024-03-04 10:31] LABS: Basophils Percent Auto 0.7 % (0-2); Eosinophils Absolute Auto 0.2 X10*3/uL (0.0-0.4); Eosinophils Percent Auto 5.2 % (0-4); Hematocrit 40.4 % (37.0-47.0); Hemoglobin 13.4 g/dl (12.0-16.0); Imm Gran Abs Auto 0.01 X10*3/uL (0.00-0.03); Imm Gran Pct Auto 0.2 % (0.0-0.4); Lymphocytes Absolute Auto 1.4 X10*3/uL (1.2-4.9); Lymphocytes Percent Auto 31.5 % (20-40); Mean Corpuscular HGB Conc 33.2 g/dl (31.0-35.0); Mean Corpuscular Hemoglobin 30.9 pg (27.0-33.0); Mean Corpuscular Volume 93.1 fL (80.0-98.0); Mean Platelet Volume 9.7 fL (9.4-12.3); Monocytes Absolute Auto 0.4 X10*3/uL (0.1-1.2); Monocytes Percent Auto 8.6 % (2-11); Neutrophils Absolute Auto 2.4 x10*3/uL (2.0-8.3); Neutrophils Percent Auto 53.8 % (45-73); Platelet Count 253 X10*3/uL (160-400); Red Blood Count 4.34 X10*6/uL (4.20-5.50); Red Cell Distribution Width 12.7 % (11.0-16.0); White Blood Count 4.4 X10*3/uL (4.8-10.8)
[2024-03-04 11:05] LABS: Alanine Aminotransferase 28 U/L (0-31); Albumin Level 4.1 g/dL (3.5-5.0); Alkaline Phosphatase 66 U/L (39-117); Anion Gap 12 (12-20); Aspartate Amino Transferase 31 U/L (5-31); Bilirubin Total 1.2 mg/dL (0.0-1.0); Blood Urea Nitrogen 15 mg/dL (9-16); Calcium 9.5 mg/dL (8.4-10.2); Carbon Dioxide 26 mmol/L (22-29); Chloride 107 mmol/L (96-108); Cholesterol 149 mg/dL (<200); Estimated Glomerular Filt Rate > 60; Glucose Fasting 88 mg/dL (60-99); HDL Cholesterol 56 mg/dL (>40); LDL Cholesterol Calculated 80 mg/dL (<100); Sodium 141 mmol/L (135-145); Total Protein 6.9 g/dL (6.5-8.0); Triglycerides 65 mg/dL (<150)
[2024-03-04 11:11] LABS: Vitamin D 25-OH Total 64.3 ng/mL (>30)
== END 2024-03-04 06:21 | disposition home or self-care (01) ==
LOC: HO.HMGCLDS 06:20
PROVIDERS: PCP Internal Medicine; Visit Provider Internal Medicine
DX: I10 Essential (primary) hypertension (principal); E78.00 Pure hypercholesterolemia, unspecified; K57.90 Diverticulosis of intestine, part unspecified, without perforation or abscess without bleeding
CPT/HCPCS: 36415; 80053; 80061; 82306; 85025

== ENCOUNTER 2024-06-03 09:46 | Outpatient (REF) | payer OTHER, SELFPAY | END 2024-06-03 09:47 | disposition home or self-care (01) | LOC: HO.MAMMO 09:46 | PROVIDERS: PCP Internal Medicine; Visit Provider Internal Medicine | DX: Z12.31 Encounter for screening mammogram for malignant neoplasm of breast (principal) | CPT/HCPCS: 77063; 77067 ==

== ENCOUNTER → 2024-06-03 10:00 | Outpatient (BNV) | payer OTHER, SELFPAY | PROVIDERS: PCP Internal Medicine; Visit Provider Internal Medicine | DX: Z12.31 Encounter for screening mammogram for malignant neoplasm of breast (principal) | CPT/HCPCS: 77063; 77067 ==

== ENCOUNTER 2024-09-02 08:52 | Outpatient (AMB) | payer OTHER, SELFPAY ==
--- NOTE | 2024-09-02 08:57 | A.OFFPC_ITS ---
Vital Signs 09/02/24 09:02 09/02/24 09:33 09/02/24 09:33 Weight 67.132 kg BP 128/80 140/78 H 142/80 H Respiration 14 Pulse 66 Pulse Source Pulse Oximeter Temp 97.3 F Temp Source Temporal Artery Scan Pulse Oximetry (%) 99 Oxygen Delivery Method Room Air Intake Visit Reasons: Routine Photographs Curator Required: No Accompanied by: Self / Same As Patient Allergies No Known Allergies Allergy (Verified 09/02/24 09:01) Medication List - Last Reconciled 09/02/24 by BARRON Curry coenzyme Q10 (Ultra CoQ10) 75 mg PO DAILY losartan 75 mg (1.5 x 50 mg) PO DAILY multivitamin (Daily Multi-Vitamin tablet) 1 tab PO DAILY rosuvastatin 5 mg PO DAILY HPI HPI Comments History of Present Illness Details 68-year-old female presents to the [facility] today for routine follow-up and to establish care. She was recently diagnosed with osteoporosis on DEXA scan and reports she is taking vitamin-D as well as a multivitamin but is unsure how much calcium is in the multivitamin. She is unsure of the amount of vitamin-D, but believes it is 1000 mcg. She has been diagnosed with an ascending aortic aneurysm and had echocardiogram of January last year. Prior PCP recommended follow-up in 1 year for this. She is currently asymptomatic, no shortness of b reath, palpitations, lightheadedness, near-syncope/syncope, chest pains. Review of last echocardiogram shows stable aortic aneurysm, measuring 4.5 cm, similar to echocardiogram the year prior. She has been compliant with losartan 50 mg daily. She is no longer checking her blood pressures at home. She is also taking rosuvastatin for management of elevated cholesterol levels. She has no other concerns today. [facility] Medical History (Updated 09/02/24 @ 09:22 by BARRON Curry) Osteoporosis Ascending aortic aneurysm Tubular adenoma of colon Elevated cholesterol HTN (hypertension) History of adenomatous polyp of colon Pulmonary nodules Surgical History Hx of appendectomy History of bunionectomy History of esophagogastroduodenoscopy (EGD) H/O colonoscopy (~01/28/21) Social History Patient Tobacco Use Status: Former Tobacco user Years Smoked: 5 Review of Systems Const All systems reviewed & are unremarkable except as noted in HPI and below Physical exam (Primary Care) Vital Signs: Last Vital Signs Temp 97.3 F 09/02/24 09:02 Pulse 66 09/02/24 09:02 Resp 14 09/02/24 09:02 BP 142/80 H 09/02/24 09:33 Pulse Ox 99 09/02/24 09:02 Oxygen Delivery Method Room Air 09/02/24 09:02 Tobacco/Smoking Status: Tobacco use Status Patient Tobacco Use Status Former Tobacco user 09/02/24 09:00 Const Other: Constitutional - Awake and Alert, No apparent distress Eyes - PERRLA, EOMI Cardiovascular - S1S2, RRR, No edema Respiratory - Normal lung expansion, Normal respiratory effort, No respiratory distress, CTA bilaterally Extremities - no calf tenderness bilaterally, no swelling Skin - Warm/Dry Neurological - Alert & oriented x3 Psychological - Appropriate affect Coding Level of Care Code New Pt Level 4 (43450) Complex EM visit Add On G2211 Diagnoses HTN (hypertension) I10 Elevated cholesterol E78.00 Ascending aortic aneurysm I71.21 Osteoporosis M81.0 Assessment & Plan Assessment & Plan (1) HTN (hypertension): Code(s): I10 - Essential (primary) hypertension Category: Medical Plan: Blood pressure is uncontrolled with repeat 142/80. Increase losartan to 75 mg daily. Recommend low-sodium diet. She will follow-up in the office in several weeks for blood pressure recheck. BMP order to evaluate renal function and electrolyte levels. (2) Elevated cholesterol: Code(s): E78.00 - Pure hypercholesterolemia, unspecified Category: Medical Plan: Lipid panel ordered. Continue rosuvastatin 5 mg daily. Continue low-fat diet a nd exercise. (3) Ascending aortic aneurysm: Code(s): I71.21 - Aneurysm of the ascending aorta, without rupture Category: Medical Plan: Echocardiogram ordered for re-evaluation. She is currently asymptomatic. Discussed the importance of close blood pressure management. (4) Osteoporosis: Code(s): M81.0 - Age-related osteoporosis without current pathological fracture Category: Medical Plan: Reviewed last DEXA scan. Recommend weight-bearing exercise. She should continue calcium and vitamin-D supplementation. We will assess vitamin-D level as well as calcium. Plan Follow-up in 3 weeks for blood pressure recheck. Labs ordered to be completed and discussed at next office visit. She will call to schedule appointment for repeat screening colonoscopy Orders: Orders Complete Blood Count Auto Diff 09/02/24 E78.00 - Pure hypercholesterolemia, unspecified, I10 - Essential (primary) hypertension, Z13.1 - Encounter for screening for diabetes mellitus Lipid Panel 09/02/24 E78.00 - Pure hypercholesterolemia, unspecified, I10 - Essential (primary) hypertension, Z13.1 - Encounter for screening for diabetes mellitus Liver Panel 09/02/24 E7.00 - Pure hypercholesterolemia, unspecified, I10 - Essential (primary) hypertension, Z13.1 - Encounter for screening for diabetes mellitus TSH reflex Free T4 09/02/24 E78.00 - Pure hypercholesterolemia, unspecified, I10 - Essential (primary) hypertension, Z13.1 - Encounter for screening for diabetes mellitus Basic Metabolic Panel 09/02/24 E78.00 - Pure hypercholesterolemia, unspecified, I10 - Essential (primary) hypertension, Z13.1 - Encounter for screening for diabetes mellitus Hemoglobin A1c 09/02/24 E78.00 - Pure hypercholesterolemia, unspecified, I10 - Essential (primary) hypertension, Z13.1 - Encounter for screening for diabetes mellitus Vitamin D 25-OH Total 09/02/24 M81.0 - Age-related osteoporosis without current pathological fracture CA echo transthoracic complete 01/21/25 I71.21 - Aneurysm of the ascending aorta, without rupture Medications: Changed From losartan 50 mg PO DAILY 90 tabs 1RF To losartan 75 mg (1.5 x 50 mg) PO DAILY 90 tabs 1RF
[2024-09-02 09:02] VITALS: BP 128/80; PULSE 66; RESP 14; TEMP 36.3; O2SAT 99
--- OUTSIDE RECORDS SUMMARY | 2024-09-02 09:16 | XMS_ITS | Clinical Summary ---
Author Organization [facility] Address [address] [facility] [place] [address] Care Team Providers Care Analysis Or Research Safety Inspector Name Role Phone Kolby Cuadra MD Primary Care Provider Unava ilable Allergies No known active allergies Medications Medication Sig Dispensed Refills Start Date End Date Status valsartan (DIOVAN) 80 MG tablet Take 80 mg by mouth daily. 0 Active Active Problems Problem Noted Date Pulmonary emphysema 03/28/2017 Pulmonary nodule 03/28/2017 Social History Tobacco Use Types Packs/Day Years Used Date Smoking Tobacco: Former Smokeless Tobacco: Never Comments:17-19 Alcohol Use Standard Drinks/Week Comments Yes 1 (1 standard drink = 0.6 oz pur e alcohol) occassional Sex Assigned at Date Recorded Not on file Last Filed Vital Signs Vital Sign Reading Time Taken Comments Blood Pressure 120/70 03/28/2017 2:10 PM EST Pulse 64 03/28/2017 2:10 PM EST Temperature - - Respiratory Rate - - Oxygen Saturation 99% 03/28/2017 2:10 PM EST Inhaled Oxygen Concentration - - Weight 59.8 kg (131 lb 12.8 oz) 03/28/2017 2:10 PM EST Height 163.8 cm (5' 4.5 ) 03/28/2017 2:10 PM EST Body Mass Index 22.27 03/28/2017 2:10 PM EST Plan of Treatment Health Maintenance Due Date Last Done Comments Covid-19 Vaccine (#1) [birth year]27/1956 HEPATITIS C SCREENING 11/25/1971 DTAP/TDAP/TD (1 - Tdap) 1972 CHOLESTEROL SCREENING 1973 MAMMOGRAM 1993 COLON CANCER SCREENING 11/25/2003 SHINGLES VACCINE (1 of 2) 11/25/2003 BONE DENSITY SCREENING 2018 PNEUMOCOCCAL VACCINE (1 - PCV) 2018 INFLUENZA (Season Ended) 2024 Care Teams Analysis Or Research Safety Inspector Relationship Specialty Start Date End Date Kolby Cuadra MD PCP - General Internal Medicine 03/28/17
--- OUTSIDE RECORDS SUMMARY | 2024-09-02 09:16 | XMS_ITS | Encounter Summary ---
Author Organization [facility] Address [address] [place] [address] Care Team Providers Care Direct Sales Professional Name Role Phone Kolby Cuadra MD Primary Care Provider Unava ilable Encounter Details Date Type Department Care Team Description 04/05/2017 Release of Information Medical Records [address] [place] [id number] Abstract, Provider Social History Tobacco Use Types Packs/Day Years Used Date Smoking Tobacco: Former Smokeless Tobacco: Never Comments:17-19 Alcohol Use Standard Drinks/Week Comments Yes 1 (1 standard drink = 0.6 oz pur e alcohol) occassional Sex Assigned at Date Recorded Not on file documented as of this encounter Plan of Treatment Not on file documented as of this encounter Visit Diagnoses Not on filedocumented in this encounter Care Teams Direct Sales Professional Relationship Specialty Start Date End Date Kolby Cuadra MD PCP - General Internal Medicine 03/28/17 documented as of this encounter
[2024-09-02 09:33] VITALS: BP 140/78; BP 142/80
== END 2024-09-02 09:36 | disposition home or self-care (01) ==
LOC: HO.HMCHD 08:52
PROVIDERS: PCP Internal Medicine; Visit Provider Physician Assistant
DX: I10 Essential (primary) hypertension (principal); E78.00 Pure hypercholesterolemia, unspecified; I71.21 Aneurysm of the ascending aorta, without rupture; M81.0 Age-related osteoporosis without current pathological fracture

== ENCOUNTER 2024-09-02 08:52 | Outpatient (REF) | payer OTHER, SELFPAY | END 2024-09-02 08:53 | disposition home or self-care (01) | LOC: HO.LAB 08:52 | PROVIDERS: PCP Internal Medicine; Visit Provider Physician Assistant | DX: Z13.89 Encounter for screening for other disorder (principal) ==

== ENCOUNTER 2024-09-12 06:44 | Outpatient (REF) | payer MEDICARE, SELFPAY ==
--- OUTSIDE RECORDS SUMMARY | 2024-09-12 06:46 | XMS_ITS | Clinical Summary ---
Author Organization [facility] Address [address] [facility] [place] [place] [address] Care Team Providers Care Clerical Secretary Name Role Phone Kobly Cuadra MD Primary Care Provider Unava ilable [...] 2018 INFLUENZA (Season Ended) 2024 Care Teams Clerical Secretary Relationship Specialty Start Date End Date Kolby Cuadra MD PCP - General Internal Medicine 03/28/17
[2024-09-12 10:00] LABS: MANUAL DIFF FLAG NO
[2024-09-12 10:06] LABS: Basophils Percent Auto 0.2 % (0-2); Eosinophils Absolute Auto 0.1 X10*3/uL (0.0-0.4); Eosinophils Percent Auto 2.8 % (0-4); Hematocrit 41.8 % (37.0-47.0); Hemoglobin 13.9 g/dl (12.0-16.0); Imm Gran Abs Auto 0.01 X10*3/uL (0.00-0.03); Imm Gran Pct Auto 0.2 % (0.0-0.4); Lymphocytes Absolute Auto 1.5 X10*3/uL (1.2-4.9); Lymphocytes Percent Auto 32.6 % (20-40); Mean Corpuscular HGB Conc 33.3 g/dl (31.0-35.0); Mean Corpuscular Hemoglobin 30.7 pg (27.0-33.0); Mean Corpuscular Volume 92.3 fL (80.0-98.0); Mean Platelet Volume 9.8 fL (9.4-12.3); Monocytes Absolute Auto 0.3 X10*3/uL (0.1-1.2); Neutrophils Absolute Auto 2.7 x10*3/uL (2.0-8.3); Neutrophils Percent Auto 57.2 % (45-73); Platelet Count 254 X10*3/uL (160-400); Red Blood Count 4.53 X10*6/uL (4.20-5.50); White Blood Count 4.7 X10*3/uL (4.8-10.8)
[2024-09-12 10:17] LABS: Estimated Average Glucose 105 mg/dL; Hemoglobin A1c % 5.3 % (<6.0); Total Hemoglobin (HGBA1C) 3588.3803 umol/L
[2024-09-12 10:42] LABS: Alanine Aminotransferase 24 U/L (0-31); Albumin Level 4.4 g/dL (3.5-5.0); Alkaline Phosphatase 64 U/L (39-117); Anion Gap 10 (12-20); Aspartate Amino Transferase 25 U/L (5-31); Bilirubin Direct 0.4 mg/dL (0.0-0.5); Bilirubin Total 1.3 mg/dL (0.0-1.0); Blood Urea Nitrogen 15 mg/dL (9-16); Calcium 9.4 mg/dL (8.4-10.2); Carbon Dioxide 29 mmol/L (22-29); Chloride 108 mmol/L (96-108); Cholesterol 155 mg/dL (<200); Estimated Glomerular Filt Rate > 60; Glucose Random 93 mg/dL (60-115); HDL Cholesterol 58 mg/dL (>40); LDL Cholesterol Calculated 81 mg/dL (<100); Potassium 4.1 mmol/L (3.3-5.1); Sodium 143 mmol/L (135-145); TSH reflex Free T4 3.33 uIU/mL (0.32-4.0); Total Protein 7.2 g/dL (6.5-8.0); Triglycerides 84 mg/dL (<150); Vitamin D 25-OH Total 79.9 ng/mL (>30)
== END 2024-09-12 06:45 | disposition home or self-care (01) ==
LOC: HO.HMGCLDS 06:44
PROVIDERS: Visit Provider Physician Assistant
DX: E78.00 Pure hypercholesterolemia, unspecified (principal); I10 Essential (primary) hypertension; Z13.1 Encounter for screening for diabetes mellitus; M81.0 Age-related osteoporosis without current pathological fracture
CPT/HCPCS: 36415; 80048; 80061; 80076; 82306; 83036; 84443; 85025

== ENCOUNTER 2024-09-24 08:55 | Outpatient (AMB) | payer MEDICARE, OTHER, SELFPAY ==
--- NOTE | 2024-09-24 09:03 | MHC.PC.OV ---
Vital Signs 09/24/24 09:06 09/24/24 09:15 Height 5 ft 4 in Weight 66.678 kg BMI 25.2 BP 138/82 136/74 Respiration 16 Pulse 70 Pulse Source Pulse Oximeter Temp 97.9 F Temp Source Temporal Artery Scan Pulse Oximetry (%) 98 Oxygen Delivery Method Room Air Intake Visit Reasons: 3 week F/U Toe Stripper Required: No Accompanied by: Self / Same As Patient Allergies No Known Allergies Allergy (Verified 09/24/24 09:03) Medication List - Last Reconciled 09/24/24 by BARRON Curry carbamide peroxide 6.5% (Debrox) 5 drps otic (ear) left Q12H 4 days coenzyme Q10 (Ultra CoQ10) 75 mg PO DAILY fluticasone propionate 50 mcg/actuation (Allergy Relief (fluticasone)) 1 spray intranasal BID loratadine (Allergy Relief (loratadine)) 10 mg PO DAILY PRN losartan 75 mg (1.5 x 50 mg) PO DAILY multivitamin (Daily Multi-Vitamin tablet) 1 tab PO DAILY rosuvastatin 5 mg PO DAILY HPI HPI Comments History of Present Illness Details 68-year-old female with hypertension, hyperlipidemia presents to the office today for follow-up. At prior visit 3 weeks ago, blood pressures were uncontrolled. Losartan was subsequently increased to 75 mg daily. The patient has been tracking her blood pressures at home with systolic blood pressure primarily in the 120s and diastolic pressures in the 80s. She reports she has been experiencing a dry cough for the last 2 weeks, after initiating the increased dose of losartan. She does have history of dry cough with JOSE inhibitors. She had previously been tolerating the losartan well. There is also throat irritation, nasal congestion. She also feels some blockage in the left ear. No fevers, chills, sinus pain, shortness of breath, wheezing, chest pain. She has been using Tylenol cold and flu with some relief. She denies any known history of allergies. ROS: General: No fevers, malaise, unintentional weight loss HEENT: see hpi Cardiovascular: No chest pain, palpitations, or leg edema Respiratory: No shortness of breath, wheezing. see hpi MSK: No myalgia, back pain Neuro: No headaches, weakness, paresthesias Skin: No rashes or lesions EXAM: Constitutional - Awake and Alert, No apparent distress Eyes - PERRLA, EOMI Ears- external ears normal. Right canal clear. Left ear with moderate cerumen impaction but otherwise no erythema or edema, obstructing visual of tympanic membrane. Right TM intact, pearly [place] with some air-fluid levels Mouth-mucosal membranes moist. Posterior oropharynx erythematous without edema or exudates. Posterior cobblestoning noted Neck-no adenopathy Cardiovascular - S1S2, RRR, No edema Respiratory - Normal lung expansion, Normal respiratory effort, No respiratory distress, CTA bilaterally Extremities - no calf tenderness bilaterally, no swelling Skin - Warm/Dry Neurological - Alert & oriented x3 Psychological - Appropriate affect [facility] Medical History (Updated 09/24/24 @ 09:32 by BARRON Curry) Osteoporosis Ascending aortic aneurysm Tubular adenoma of colon Elevated cholesterol HTN (hypertension) History of adenomatous polyp of colon Pulmonary nodules Surgical History Hx of appendectomy History of bunionectomy History of esophagogastroduodenoscopy (EGD) H/O colonoscopy (~01/28/21) Social History Patient Tobacco Use Status: Former Tobacco user Years Smoked: 5 Physical exam (Primary Care) Vital Signs: Last Vital Signs Temp 97.9 F 09/24/24 09:06 Pulse 70 09/24/24 09:06 Resp 16 09/24/24 09:06 BP 138/82 09/24/24 09:06 Pulse Ox 98 09/24/24 09:06 Oxygen Delivery Method Room Air 09/24/24 09:06 BMI result Body Mass Index 25.2 Tobacco/Smoking Status: Tobacco use Status Patient Tobacco Use Status Former Tobacco user 09/24/24 09:05 Coding Level of Care Code Est Pt Level 4 (70219) Complex EM visit Add On G2211 Diagnoses HTN (hypertension) I10 Elevated cholesterol E78.00 Allergic rhinitis J30.9 Impacted cerumen of left ear H61.22 Assessment & Plan Assessment & Plan (1) HTN (hypertension): Code(s): I10 - Essential (primary) hypertension Category: Medical Plan: Controlled. Continue losartan 75 mg daily. Low-sodium diet. It is possible that the dry cough the patient has been experiencing could be related to the losartan, though this is much less likely associated with dry cough compared to the JOSE inhibitors. Reviewed lab results showing normal renal function and electrolyte levels. Advised to contact the office should dry cough not resolve with antihistamine/steroid nasal spray. Advised to contact the office should this occur (2) Elevated cholesterol: Code(s): E78.00 - Pure hypercholesterolemia, unspecified Category: Medical Plan: Reviewed lipid panel with patient. Cholesterol levels are at goal. She should continue rosuvastatin 5 mg daily as well as diet low in saturated fats as well as highly processed foods. (3) Allergic rhinitis: Code(s): J30.9 - Allergic rhinitis, unspecified Category: Medical Plan: Given associated nasal congestion and throat irritation with evidence of postnasal drip on exam, suspect that the patient's dry cough is more likely related to seasonal allergies rather than ARB, however this is not possible. Recommend she trial Flonase and loratadine to see if symptoms resolve. Should they not, can discontinue losartan in favor of different antihypertensive agent. (4) Impacted cerumen of left ear: Code(s): H61.22 - Impacted cerumen, left ear Category: Medical Plan: Debrox drops prescribed. Advised to use 5 drops daily for 5 days. Should symptoms not resolve, contact the office for add on ear lavage. Plan Follow-up in 6 months with labs to be completed prior to visit. Continue medications as prescribed. Contact the office should dry cough not resolve with above recommendations. Use Debrox, contact office for cerumen removal should symptoms continue Orders: Orders Basic Metabolic Panel Today E78.00 - Pure hypercholesterolemia, unspecified, I10 - Essential (primary) hypertension Lipid Panel Today E78.00 - Pure hypercholesterolemia, unspecified, I10 - Essential (primary) hypertension Medications: New loratadine (Allergy Relief (loratadine)) 10 mg PO DAILY PRN 90 tabs 0RF allergy symptoms fluticasone propionate 50 mcg/actuation (Allergy Relief (fluticasone)) administer into each nostril 1 spray intranasal BID 16 grams 0RF carbamide peroxide 6.5% (Debrox) 5 drps otic (ear) left Q12H 4 days 15 mL 0RF
[2024-09-24 09:06] VITALS: BP 138/82; PULSE 70; RESP 16; TEMP 36.6; O2SAT 98; BMI 25.2
[2024-09-24 09:15] VITALS: BP 136/74
--- OUTSIDE RECORDS SUMMARY | 2024-09-24 09:21 | XMS_ITS | Clinical Summary ---
Author Organization [facility] Address [address] [facility] [place] [place] [address] Care Team Providers Care Patch Driller Name Role Phone Kolby Cuadra MD Primary [...] 2018 INFLUENZA (Season Ended) 2024 Care Teams Patch Driller Relationship Specialty Start Date End Date Kolby Cuadra MD PCP - General Internal Medicine 03/28/17
== END 2024-09-24 09:40 | disposition home or self-care (01) ==
LOC: HO.HMCHD 08:55
PROVIDERS: PCP Internal Medicine; Visit Provider Physician Assistant
DX: I10 Essential (primary) hypertension (principal); E78.00 Pure hypercholesterolemia, unspecified; J30.9 Allergic rhinitis, unspecified; H61.22 Impacted cerumen, left ear

== ENCOUNTER → 2024-09-24 08:55 | Outpatient (BNVA) | payer MEDICARE, OTHER, SELFPAY | PROVIDERS: PCP Internal Medicine; Visit Provider Physician Assistant | DX: I10 Essential (primary) hypertension (principal); E78.5 Hyperlipidemia, unspecified; E78.00 Pure hypercholesterolemia, unspecified; J30.9 Allergic rhinitis, unspecified; H61.22 Impacted cerumen, left ear | CPT/HCPCS: 99212 ==

== ENCOUNTER → 2025-02-18 09:50 | Outpatient (REF) | payer MEDICARE, SELFPAY ==
--- NOTE | 2025-02-18 09:53 | CA_ITS ---
Transthoracic Echocardiogram Patient (Last, First, Middle): Mai Brady E Gender: F Date of : 1955 Age: 69 Procedure Date: 02/18/2025 Procedure Type: Transthoracic Echocardiogram Location: OP Height: 162.56 cm Weight: 65.32 kg BSA: 1.70 m2 Heart Rate: bpm BP: 138 / 70 mmHg Technical Recruiter: TO Referring MD: Emely MART Symptoms: I71.21 - Aneurysm of the ascending aorta, without rupture Study Quality: Adequate ECG Rhythm: Sinus Conclusions: - The left ventricular systolic function is normal. The calculated ejection fraction is 60% by biplane method. - No obvious valvular pathology seen on this study. - There is mild dilatation of the ascending aorta measuring 4.20 cm. Findings Left Ventricle Normal left ventricular cavity size. The left ventricular systolic function is normal. The calculated ejection fraction is 60% by biplane method. There is no evidence of regional wall motion abnormalities. There is mild septal and mild basal asymmetric hypertrophy. Right Ventricle Normal right ventricular cavity size and systolic function. Atria Both atria are normal in size. Aortic Valve There is a normal trileaflet aortic valve. There is no aortic valve stenosis. There is no aortic valve regurgitation. Mitral Valve The mitral valve appears normal. There is no mitral valve regurgitation. There is no mitral valve stenosis. Pulmonic Valve The pulmonic valve is likely normal. Tricuspid Valve Normal tricuspid valve structure. There is trace tricuspid valve regurgitation. There is no evidence of pulmonary hypertension. Great Vessels The aortic arch is normal in size. There is mild dilatation of the ascending aorta measuring 4.20 cm. Small plaque is seen in the sino tubular ridge. Venous The inferior vena cava is normal in size and collapses greater than 50% with inspiration. Pericardium/Pleural There is no evidence of pericardial effusion. Prior Study Comparison Changes noted compared to prior study dated: 02/13/2024. Ascending aortic size smaller. Could be underestimation. Recommendations, Care & Conclusions No obvious valvular pathology seen on this study. Measurements 2D Linear Measurements IVSd: 0.90 0.6-0.9/0.6-1.0 cm LVIDd: 4.84 3.9-5.3/4.2-5.9 cm LVIDd Index: 2.85 2.4-3.2/2.2-3.1 cm/m2 LVIDs: 2.80 2.0-3.6 cm LVPWd: 0.78 0.7-1.1 cm LA Diam: 3.20 2.7-3.8/3.0-4.0 cm LAIDs Index: 1.88 1.5-2.3 cm/m2 LV Mass: 170.34 67-162/88-224 g LV Mass Index: 100.20 43-95/49-115 g/m2 LVOT Diam: 2.30 3.0+(-)1.3 cm 2D Systolic Function EF 4C: 62.90 >55% EF 2C: 60.40 >55% EF BiP: 60.40 >55% Aortic Valve AoV Pk Eugenio: 1.36 AoV Mn Eugenio: 0.82 AoV VTI: 0.27 AoV Pk Grad: 7.00 Aov Mn Grad: 3.00 CHRISTOPHER Cont.VTI: 3.65 LVOT LVOT Pk Eugenio: 0.97 LVOT Mn Eugenio: 0.70 LVOT VTI: 0.23 LVOT Pk Grad: 4.00 LVOT Mn Grad: 2.00 LVOT Diam: 2.30 LVOT Area: 4.15 Right Ventricle TAPSE (mm): 22.10 TVS' Eugenio: 15.90 Tricuspid Valve TR Pk Eugenio: 2.20 TR Pk Grad: 19.00 RA Press: 8.00 RVSP: 27.00 Great Vessels Aorta Sinus of Valsalva: 3.99 2.0-3.[address] Ridge: 2.80 1.7-3.4 cm Ao Asc: 4.20 2.1-3.4 cm Ao Arch: 3.00 Updated in Other Vendor System with Status of Final Kvng Wolf MD electronically signed on 02/19/2025 12:08:11 PM with status of Final
--- OUTSIDE RECORDS SUMMARY | 2025-02-18 11:50 | XMS_ITS | Patient Health Record ---
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 Name Role Phone Venecia (RETIRED) Kolby PITT Primary Care Provide r Unavailable Juan Hope Unavailable [phone] Gil PITT, Justo Unavailable Unavailable Reason For Referral No Information Medications Medication SIG (Take, Route, Fr equency, Duration) Notes Start Date End Date Status Valsartan 80 MG 1 tablet Orally Once a day Active Multivitamin Adults - 1 tablet Orally once a day Active Latanoprost 0.005 % 1 drop into affected eye in the evening Ophthalmic Once a day Active Social History Tobacco Use: Social History Observation Description Date Details (start date - stop date) Former Smoker NA - NA Tobacco Use/Smoking Question Answer Notes Patient is a former smoker How long has it been since you last smoked? > 10 years Alcohol Screen Question Answer Notes Did you have a drink contain ing alcohol in the past year? Yes How often did you have a dri nk containing alcohol in the past year? 4 or more times a week (4 points) How many drinks did you have on a typical day when you were drinking in the past year? 1 or 2 drinks (0 point) How often did you have 6 or more drinks on one occasion in the past year? Never (0 point) Points 4 Interpretation Positive Section Notes: Nonsmoker; occ. wine Nonsmoker; occ. wine Problems Problem Type SNOMED Code ICD Code Onset Dates Problem Status W/U Status Risk Notes Problem Epigastric pain (22366592) Abdominal pain, epigastric (R10.13) Active confirmed Problem Gastroesophageal reflux disease without esophagitis (007686788) Gastroesophageal reflux disease without esophagitis (K21.9) Active confirmed Plan Of Treatment Future Test Test Name Order Date UPPER GI ENDOSCOPY 05/29/2017 Insurance Providers Payer Name Payer Address Payer Phone Subscriber Number Group Number Insured Name Patient Relationship to Insured Coverage Start Date Coverage End Date [employer] [address] [place] [address] [phone] [id number] [place] Self - patient is the insured Medical (General) History Medical History History ICD Code Hypertension Denies [place],DM,CVA,Lung disease,renal dise ase Glaucoma Colonoscopy in 2015-Dr. Chou [facility]--small adenomas removed, including one from the appendiceal orifice--she underwent a subsequent appendectomy which was negative for any residual adenoma; she did have negative colonoscopies in 1999 and 2005 except for hyperplastic polyps EGD in 05/2015---small HH, mild gastritis --no H.pylori, no Guerrero's Surgical History Surgery Date(Month/Year) tonsillectomy [address] Azul as above 2 016
== END ==
LOC: HO.CARD 09:50
PROVIDERS: PCP Physician Assistant; Visit Provider Physician Assistant
DX: I71.21 Aneurysm of the ascending aorta, without rupture (principal)
CPT/HCPCS: 93306

== ENCOUNTER → 2025-02-18 09:53 | Outpatient (BNV) | payer MEDICARE, SELFPAY | PROVIDERS: PCP Physician Assistant; Visit Provider Internal Medicine | DX: I42.2 Other hypertrophic cardiomyopathy (principal); I71.21 Aneurysm of the ascending aorta, without rupture | CPT/HCPCS: 93306 ==

== ENCOUNTER 2025-03-11 09:50 | Outpatient (AMB) | payer MEDICARE, SELFPAY ==
--- NOTE | 2025-03-11 09:17 | MHC.PC.OV ---
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 Required: No Accompanied by: Self / Same As Patient Allergies No Known Allergies Allergy (Verified 03/11/25 09:17) Medication List - Last Reconciled 03/11/25 by Hi Fitzgerald MD coenzyme Q10 (Ultra CoQ10) 75 mg PO DAILY latanoprost 0.005% 1 drp ophthalmic-Right BEDTIME loratadine (Allergy Relief (loratadine)) 10 mg PO DAILY PRN losartan 75 mg (1.5 x 50 mg) PO DAILY multivitamin (Daily Multi-Vitamin tablet) 1 tab PO DAILY rosuvastatin 5 mg PO DAILY Tobacco use date assessed: 03/11/25 Fall risk assessment: No Falls in past year Last assessed Fall Risk: 03/11/25 Dental Screening Dental Screen Date: 03/11/25 Did you have a dental visit in the last 12 months?: Yes Did you have a dental problem in the last 6 months where you did not have access to dental care?: No Was dental information given to patient?: Patient has dentist HPI HPI Comments History of Present Illness Details History of Present Illness The patient is a 69-year-old female presenting for follow-up with complaints of a blocked ear and elevated blood pressure. The patient reports a sensation of a blocked ear with some associated decreased hearing. She previously tried Debrox eardrops as prescribed by another provider, but this did not provide any relief. She also reports episodes of zigzagging while walking but denies associated dizziness or lightheadedness. The patient has a history of hypertension and is prescribed losartan 75 mg. She admits she has not been checking her blood pressure at home for a while. She reports feeling stressed and anxious due to preparations for hosting Thanksgiving. Her history is also notable for hypercholesterolemia, treated with rosuvastatin 5 mg, and her lab work from August showed an LDL of 81. Other labs from August were unremarkable, with an A1c of 5.3 and normal thyroid function. She has discontinued her allergy medications, loratadine and fluticasone nasal spray. Medical History: - Hypertension - Hypercholesterolemia - Allergies Medications: - Losartan 75 mg for hypertension - Rosuvastatin 5 mg for hypercholesterolemia - Coenzyme Q10 - Tylenol Procyte eye drops as needed - Multivitamin Diagnostic Results: - Labs (August): LDL cholesterol was 81 mg/dL. - Labs (August): A1c was 5.3%. - Labs (August): Thyroid function tests were normal. Social History - Exercise: The patient tries to walk daily. - Stress: Reports feeling anxious and stressed due to preparations for hosting a large group of people for Thanksgiving. [facility] Medical History (Updated 03/11/25 @ 10:18 by Hi Fitzgerald MD) Decreased hearing of left ear Osteoporosis Ascending aortic aneurysm Tubular adenoma of colon Elevated cholesterol HTN (hypertension) History of adenomatous polyp of colon Pulmonary nodules Surgical History Hx of appendectomy History of bunionectomy History of esophagogastroduodenoscopy (EGD) H/O colonoscopy (~01/28/21) Social History Housing: House Patient Tobacco Use Status: Former Tobacco user Years Smoked: 5 e-Cigarette/Vaping Use: Never Used service: No Current occupational status: retired Questionnaire AUDIT C Alcohol Use Questionnaire (AUDIT-C) 1. How often do you have a drink containing alcohol?: Monthly or less 2. How many drinks containing alcohol do you have on a typical day when you are drinking?: 1 or 2 3. How often do you have six or more drinks on one occasion?: Never Total Score: 1 Review of Systems Narrative Review of Systems - Constitutional: Denies nausea and vomiting. - Eyes: Denies vision loss. - ENT: Reports a blocked sensation in her ear and morning congestion. - Cardiovascular: Denies chest pain. - Respiratory: Denies shortness of breath. - Gastrointestinal: Reports normal bowel function. - Genitourinary: Reports normal urination. - Neurological: Reports episodes of zigzagging while walking. Denies headaches, dizziness, and lightheadedness. All systems reviewed & are unremarkable except as reviewed in HPI and above Physical exam (Primary Care) Vital Signs: Last Vital Signs Temp 7.5 F L 03/11/25 09:56 Pulse 72 03/11/25 09:56 Resp 18 03/11/25 09:56 BP 146/84 H 03/11/25 09:56 Pulse Ox 98 03/11/25 09:56 Oxygen Delivery Method Room Air 03/11/25 09:56 BMI result Body Mass Index 26.0 Tobacco/Smoking Status: Tobacco use Status Tobacco use date assessed 03/11/25 03/11/25 09:17 Patient Tobacco Use Status Former Tobacco user 03/11/25 09:17 e-Cigarette/Vaping Use Never Used 03/11/25 09:58 Narrative Physical Exam General: +Alert and oriented, Well nourished, No acute distress. Eye: Pupils are equal, round and reactive to light, Intact accommodation, Extraocular movements are intact, Normal conjunctiva, Vision unchanged. HENT: Normocephalic, Atraumatic, Tympanic membranes are clear, Decreased hearing, Oral mucosa is moist, No pharyngeal erythema, Ear canals patent with very little wax. Respiratory: Lungs CTA bilaterally, No wheeze, Respirations are non-labored. Cardiovascular: Regular rate, Regular rhythm, S1 auscultated, S2 auscultated, No murmur, Good pulses equal in all extremities, Normal peripheral perfusion, No edema. Gastrointestinal: Soft, Non-tender, Non-distended, Normal bowel sounds, No organomegaly. Musculoskeletal: Normal range of motion, Normal strength, No tenderness, No swelling, No deformity, Normal gait. Integumentary: Warm, Dry, [place], Intact. Neurologic: Alert, Oriented, Normal sensory, Normal motor function, No focal defects, Cranial Nerves II-XII are grossly intact, Normal deep tendon reflexes. Psychiatric: Cooperative, Appropriate mood & affect, Normal judgment. Coding Level of Care Code Est Pt Level 4 (78322) Complex EM visit Add On G2211 Diagnoses Primary hypertension I10 Hypertension type: primary hypertension Decreased hearing of left ear H91.92 Elevated cholesterol E78.00 Assessment & Plan Assessment & Plan (1) HTN (hypertension): Comment: - The patient presents with elevated blood pressure readings of 146/84 mmHg and subsequently in the 160s, while on losartan 75 mg. - The elevation may be exacerbated by recent stress. - The plan is to increase losartan to 100 mg daily. - The patient was advised to monitor her blood pressure at home, especially one hour after taking the medication, and watch for symptoms of hypotension such as dizziness. - She will follow up in one month to reassess control. Code(s): I10 - Essential (primary) hypertension Category: Medical Qualifiers: Hypertension type: primary hypertension Qualified Code(s): I10 - Essential (primary) hypertension (2) Decreased hearing of left ear: Comment: Aural fullness and Disequilibrium - The patient reports a sensation of a blocked ear and zigzagging while walking. - Otoscopic exam showed minimal cerumen. - The symptoms are likely related to eustachian tube dysfunction from congestion, as the inner ear is critical for balance. - The plan is to use a humidifier at night, a saline nasal spray for a few days, and resume her daily allergy medication to aid with decongestion. - A hearing test was recommended to rule out an underlying issue affecting her equilibrium, but the patient has deferred this for now. Code(s): H91.92 - Unspecified hearing loss, left ear Category: Medical (3) Elevated cholesterol: Comment: - The patient is well-controlled on rosuvastatin 5 mg with a recent LDL of 81 mg/dL. - The plan is to continue the current medication. - Reassurance was provided that this medication is not the cause of her disequilibrium. Code(s): E78.00 - Pure hypercholesterolemia, unspecified Category: Medical Plan: Health Maintenance: - Patient is encouraged to monitor her blood pressure at home. - Patient engages in daily walking. Patient was informed and verbally consented to the use of an ambient scribe for clinic note documentation during this visit. Plan I discussed with the patient her elevated blood pressure readings in the office, noting they were in the 160s despite her current medication. I explained that the side effects of uncontrolled high blood pressure are more dangerous than those of the medication. I recommended increasing her losartan from 75 mg to 100 mg and sent a new prescription to her pharmacy. I instructed her to monitor her pressures at home and to be aware of signs of over-treatment, such as dizziness. We also addressed her complaint of a blocked ear and disequilibrium while walking. I explained that equilibrium is highly dependent on the ears and that congestion can affect balance. Given the minimal wax found on exam, I recommended conservative measures such as using a humidifier, saline nasal spray, and restarting her daily allergy medication. I recommended a hearing test to ensure there was no underlying hearing loss contributing to her symptoms, but she preferred to hold off on this for now and will reconsider in the future. I reassured her that her cholesterol medication is very safe and not the cause of her symptoms. We scheduled a follow-up appointment in four weeks to reassess her blood pressure and symptoms. Medications: New losartan 100 mg PO DAILY 30 tabs 0RF 30 days Discontinued losartan Discontinued Reason: Doctor's Order 75 mg (1.5 x 50 mg) PO DAILY 90 tabs 1RF fluticasone propionate 50 mcg/actuation (Allergy Relief (fluticasone)) administer into each nostril Discontinued Reason: Doctor's Order 1 spray intranasal BID PRN Patient Instructions: - I have sent a new prescription for Losartan 100 mg to your pharmacy. - Please stop taking the 75 mg dose and start the 100 mg dose. - Please check your blood pressure at home for the next four weeks. - Try to check it about one hour after you take your blood pressure pill. - If you feel dizzy or lightheaded, your blood pressure may be too low; please check it if this occurs. - To help with the blocked feeling in your ear and congestion, please use a humidifier when you sleep. - You may also use an ddgt-tmd-hbvlvth saline nasal spray for a few days. - Please restart your allergy medication once a day to help with decongestion. - Your ears are clean, so flushing them is not necessary at this time. - Continue taking your rosuvastatin for cholesterol. - Please schedule a follow-up appointment in four weeks.
[2025-03-11 09:56] VITALS: BP 146/84; PULSE 72; RESP 18; TEMP -13.6; TEMP 7.5; O2SAT 98; BMI 26.0
--- OUTSIDE RECORDS SUMMARY | 2025-03-11 18:17 | XMS_ITS ---
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 Operator Name Role Phone Unavailable Primary Care Physician Unavailab le History Of Present Illness This is a 69 year old female who is an established patient who is being seen for an evaluation of skin lesions.Location: body throughoutQuality: asymptomaticSeverity: mildModifying Factors: Nothing makes the lesion better or worseDuration: 1 yearHistory of Previous Treatments: has not been treatedPe rtinent History: no previous skin cancerPertinent Negatives: no family history of melanoma and no family history of non-melanoma skin cancerAdditional Visit Reasons: education and counseling about sun exposure, evaluation for suspicious growths, and evaluation of current nevi Medications Medication Generic Name RxNorm Strength Strength Unit Route Dose Dose Form Frequency Date Started Date Ended Status Indication Sig latanoprost 015652 0.005 % Ophtha lmic (eye) drops active hydroquinon e hydroqui none 472951 4 % Topica l cream 08/17/19 24 suspend ed Appl y AM and PM disc olor ed patc h on righ t lowe r leg for 2-3 ivette hs, avoi d surr ound ing skin appl y with Q-ti p lisinopril lisinopr il 50 mg Oral table t QD active Multivitami ns multivit ramon-min -iron-FA -vit K NULL oral QD 09/27/19 18 active rosuvastati n rosuvast atin 5 mg Oral table t QD active Valsartan valsarta n NULL oral 09/27/19 18 suspend ed Problems Problem Code Type Status Date of Diagnosis Date of Resolution Senile hyperkeratosis (disorder) 174997111( SNOMED) Diagnosis active 09/26/2017 Encounter for procedure for purposes other than remedying health state, unspecified Z41.9(ICD- 10) Diagnosis active 01/21/2020 Hemangioma of skin and subcutaneous tissue (disorder) 470693931( SNOMED) Diagnosis active 06/06/2021 Seborrheic keratosis (disorder) 778295874( SNOMED) Diagnosis active 06/06/2021 Disorder of pigmentation (disorder) 194556410( SNOMED) Diagnosis active 06/06/2021 Melanocytic nevus of trunk (disorder) 927974398( SNOMED) Diagnosis active 06/06/2021 Patient encounter status (finding) 826457255( SNOMED) Diagnosis active 06/06/2021 Seborrheic keratosis (disorder) 151180346( SNOMED) Diagnosis active 08/01/2021 Seborrheic keratosis (disorder) 094464177( SNOMED) Diagnosis active 10/03/2021 Hemangioma of skin and subcutaneous tissue (disorder) 294384546( SNOMED) Diagnosis active 08/14/2022 Seborrheic keratosis (disorder) 561451603( SNOMED) Diagnosis active 08/14/2022 Disorder of pigmentation (disorder) 416070161( SNOMED) Diagnosis active 08/14/2022 Melanocytic nevus of trunk (disorder) 320802867( SNOMED) Diagnosis active 08/14/2022 Patient encounter status (finding) 606944853( SNOMED) Diagnosis active 08/14/2022 Hemangioma of skin and subcutaneous tissue (disorder) 494458752( SNOMED) Diagnosis active 08/17/2023 Seborrheic keratosis (disorder) 759632669( SNOMED) Diagnosis active 08/17/2023 Disorder of pigmentation (disorder) 790734750( SNOMED) Diagnosis active 08/17/2023 Melanocytic nevus of trunk (disorder) 093549629( SNOMED) Diagnosis active 08/17/2023 Neoplasm of uncertain behavior of skin (disorder) 62940758(S NOMED) Diagnosis active 08/17/2023 Patient encounter status (finding) 340717421( SNOMED) Diagnosis active 08/17/2023 Increased blood pressure (finding) 04891149(S NOMED) Problem active Hypercholesterolemia (disorder) 06187600(S NOMED) Problem active Patient encounter status (finding) 089764906( SNOMED) Diagnosis active 06/11/2024 Asteatosis cutis (disorder) 20233729(S NOMED) Diagnosis active 06/11/2024 Neoplasm of uncertain behavior of skin (disorder) 84019185(S NOMED) Diagnosis active 03/09/2025 Hemangioma of skin and subcutaneous tissue (disorder) 707955327( SNOMED) Diagnosis active 03/09/2025 Seborrheic keratosis (disorder) 192950549( SNOMED) Diagnosis active 03/09/2025 Disorder of pigmentation (disorder) 164733739( SNOMED) Diagnosis active 03/09/2025 Melanocytic nevus of trunk (disorder) 631205965( SNOMED) Diagnosis active 03/09/2025 Patient encounter status (finding) 416816823( SNOMED) Diagnosis active 03/09/2025 History of clinical finding in subject (situation) 599835171( SNOMED) Problem active Results No data Encounters Service provided at [facility], [address] [place] [address], [address], [place], [place] [id number]. Office phone number is [phone]. Office fax number is [phone]. 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) [facility] 03/09/2025 20:00:00 [facility] [id number] Reason For Referral No data Procedures Procedure Date Shave biopsy (procedure) 03/09/2025 12:0 0 am UTC Injection of sclerosing agent in vein (p rocedure) 06/11/2024 12:00 am UTC Cryotherapy of skin lesion with liquid n itrogen (procedure) 08/14/2022 12:00 am UTC Cryotherapy of skin lesion with liquid n itrogen (procedure) 10/03/2021 12:00 am UTC Destruction of lesion of skin (procedure ) 10/03/2021 12:00 am UTC Cryotherapy of skin lesion with liquid n itrogen (procedure) 08/01/2021 12:00 am UTC Cryotherapy of skin lesion with liquid n itrogen (procedure) 06/06/2021 12:00 am UTC Documentation of past medical history (p rocedure) Documentation of past medical history (p rocedure) Documentation of past medical history (p rocedure) Documentation of past medical history (p rocedure) Documentation of past medical history (p rocedure) Documentation of past medical history (p rocedure) Documentation of past medical history (p rocedure) Documentation of past medical history (p rocedure) Documentation of past medica l history (procedure) Appendectomy Cataracts r eyeTonsillectomy Review Of Systems Provider reviewed on Mar 09, 2025.A focused review of systems was performed including Integumentary.No Problems With Healing And No Problems With Scarring (hypertrophic Or Keloid). Assessment 1.Neoplasm of Uncertain BehaviorBiopsy by Shave Method: epigastric skin.Additional NotesPhoto-Documentation:.2.Alexander AngiomasCounseling3.Seborrheic KeratosesCounseling4.LentiginesCounseling5.Benign NeviCounseling6.Skin EducationSunscreen Recommendations Plan of Care Future visit for 03/09/2027 - Follow up in 2 years for: Skin Check - 15 minutes. Other Instructions: CSE in CSE slot in 1-2 years. Other Instructions: CSE in CSE slot in 1-2 years. Code Detail Instructions 545376 hydroquinone 4 % topical cream A pply AM and PM discolored patch on right lower leg for 2-3 months, avoid surrounding skin apply with Q-tip Instructions * I counseled the patient regarding the following:Expectations: Alexander Angiomas are benign vascular growths. No treatment is necessary. * I counseled the patient regarding the following:Skin Care: Seborrheic Keratoses are benign. No treatment is necessary.Expectations: Seborrheic Keratoses are benign warty growths. Patients get more ofthem as they age. * I counseled the patient regarding the following:Expectations: Lentigines are benign pigmented lesions that occur on sun-exposed and sun-damaged skin. * I counseled the patient regarding the following:Instructions: Monthly self- skin checks to monitor for any changes in moles are recommended.No treatment is necessary.Contact Office if: Any moles change in size, shape or color; itch, burn or bleed. Social History Code Activity Start Date End Date 5555824 (SNOMED) Former smoker Sex Female Sexual orientation Unspecified Gender identity Unspecified Vital Signs No data Insurances Coverage Status Coverage Type Relationship to Subscriber Member Identifier Subscriber Identifier Group Identifier Payer Identifier Inactive 1 Self [id number] Active Self [id number] Inactive 2 Self [id number]
--- OUTSIDE RECORDS SUMMARY | 2025-03-11 18:17 | XMS_ITS | Patient Health Record ---
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 Name Role Phone Venecia (RETIRED) Kolby PITT Primary Care Provide r Unavailable Juan Hope Unavailable [phone] Gil PITT, Justo Unavailable Unavailable Reason For Referral No Information Medications Medication SIG (Take, Route, Frequency, Duration) Notes Start Date End Date Status Valsartan 80 MG Tablet 1 tablet Orally O nce a day Active Multivitamin Adults - Tablet 1 tablet Orally once a day Active Latanoprost 0.005 % Solution 1 drop into affected eye in the evening Ophthalmic Once a day Active Social History Tobacco Use: Social History Observation Description Date Details (start date - stop date) Former Smoker NA - NA Social History Drugs/Alcohol: Social Info Question Answer Notes Alcohol Screen Did you have a drink containing alcohol in the past year? Yes How often did you have a drink containing alcohol in the past year? 4 or more times a week (4 points) How many drinks did you have on a typical day when you were drinking in the past year? 1 or 2 drinks (0 point) How often did you have 6 or more drinks on one occasion in the past year? Never (0 point) Points 4 Interpretation Positive Tobacco Use: Social Info Question Answer Notes Tobacco Use/Smoking Patient is a former smoker How long has it been since you last smoked? 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 wine Nonsmoker; occ. wine Problems Problem Type SNOMED Code ICD Code Onset Dates Problem Status W/U Status Risk Notes Problem Epigastric pain (42027972) Abdominal pain, epigastric (R10.13) Active confirmed Problem Gastroesophageal reflux disease without esophagitis (558911936) Gastroesophageal reflux disease without esophagitis (K21.9) Active confirmed Plan Of Treatment Future Test Test Name Order Date UPPER GI ENDOSCOPY 05/29/2017 Insurance Providers Payer Name Payer Address Payer Phone Subscriber Number Group Number Insured Name Patient Relationship to Insured Coverage Start Date Coverage End Date [employer] [address] [place] [address] [id number] [place] Self - patient is the insured Medical (General) History Medical History History ICD Code Hypertension Denies [place],DM,CVA,Lung disease,renal dise ase Glaucoma Colonoscopy in 2015-Dr. Chou [facility]--small adenomas removed, including one from the [...]
== END 2025-03-11 10:18 | disposition home or self-care (01) ==
PROVIDERS: PCP Student in an Organized Health Care Education/Training Program; Visit Provider Student in an Organized Health Care Education/Training Program
DX: I10 Essential (primary) hypertension (principal); H91.92 Unspecified hearing loss, left ear; E78.00 Pure hypercholesterolemia, unspecified

== ENCOUNTER → 2025-03-11 09:50 | Outpatient (BNVA) | payer MEDICARE, SELFPAY | PROVIDERS: PCP Physician Assistant; Visit Provider Student in an Organized Health Care Education/Training Program | DX: I10 Essential (primary) hypertension (principal); H91.92 Unspecified hearing loss, left ear; E78.00 Pure hypercholesterolemia, unspecified | CPT/HCPCS: 99212 ==

== ENCOUNTER 2025-04-08 12:54 | Outpatient (REF) | payer MEDICARE, SELFPAY ==
[2025-04-08 15:41] LABS: Anion Gap 11 (12-20); Blood Urea Nitrogen 20 mg/dL (9-16); Calcium 10.1 mg/dL (8.4-10.2); Carbon Dioxide 30 mmol/L (22-29); Chloride 103 mmol/L (96-108); Estimated Glomerular Filt Rate > 60; Potassium 4.0 mmol/L (3.3-5.1); Sodium 140 mmol/L (135-145)
== END 2025-04-08 12:55 | disposition home or self-care (01) ==
LOC: HO.LAB 12:54
PROVIDERS: PCP Student in an Organized Health Care Education/Training Program; Visit Provider Physician Assistant
DX: I10 Essential (primary) hypertension (principal); I71.21 Aneurysm of the ascending aorta, without rupture; E78.00 Pure hypercholesterolemia, unspecified; H61.22 Impacted cerumen, left ear
CPT/HCPCS: 36415; 80048; 96127; 99212

== ENCOUNTER 2025-04-08 12:54 | Outpatient (AMB) | payer MEDICARE, SELFPAY ==
[2025-04-08 13:04] VITALS: BP 140/80; PULSE 73; TEMP 36.8; O2SAT 99; BMI 26.0
--- NOTE | 2025-04-08 13:04 | MHC.PC.OV ---
Vital Signs 04/08/25 13:04 04/08/25 13:38 Height 5 ft 3.5 in Weight 67.585 kg BMI 26.0 BP 140/80 H 128/78 Blood Pressure Location Lt brachial Position Sitting Pulse 73 Pulse Source Pulse Oximeter Temp 98.2 F Temp Source Temporal Artery Scan Pulse Oximetry (%) 99 Oxygen Delivery Method Room Air Intake Visit Reasons: 4 Week F/U BP & Hearing Clay Burner Required: No Accompanied by: Self / Same As Patient Allergies No Known Allergies Allergy (Verified 04/08/25 13:04) Tobacco use date assessed: 04/08/25 Fall risk assessment: No Falls in past year Last assessed Fall Risk: 04/08/25 Dental Screening Dental Screen Date: 04/08/25 Did you have a dental visit in the last 12 months?: Yes Did you have a dental problem in the last 6 months where you did not have access to dental care?: No HPI HPI Comments History of Present Illness Details 68-year-old female with hypertension, hyperlipidemia, ascending aortic dilation presents to the office today for follow-up. At prior visit 3 weeks ago, blood pressures were uncontrolled. Losartan was subsequently increased to 75 mg daily. The patient has been tracking her blood pressures at home with systolic blood pressure primarily in the 120s and diastolic pressures in the 80s. She reports she has been experiencing a dry cough for the last 2 weeks, after initiating the increased dose of losartan. She does have history of dry cough with JOSE inhibitors. She had previously been tolerating the losartan well. There is also throat irritation, nasal congestion. She also feels some blockage in the left ear. No fevers, chills, sinus pain, shortness of breath, wheezing, chest pain. She has been using Tylenol cold and flu with some relief. She denies any known history of allergies. Hypertension-she was seen in the office 4 weeks ago with elevated blood pressures losartan was increased to 100 mg daily. Blood pressures have been controlled since. She brings a record from home with systolic pressures in the 120s-130s and diastolic pressures in the 80s. Blood pressure in the office today Hyperlipidemia-last LDL 81. On rosuvastatin 5 mg daily Ascending aortic dilatation-recent echocardiogram 02/18 showed dilation of 4.2 cm, mild. Concerns: Block sensation in the left ears ROS: none EXAM: Constitutional - Awake and Alert, No apparent distress Eyes - PERRLA, EOMI Ears- external ears normal. Right canal clear. Left ear with moderate cerumen impaction but otherwise no erythema or edema, obstructing visual of tympanic membrane. R Cardiovascular - S1S2, RRR, No edema Respiratory - Normal lung expansion, Normal respiratory effort, No respiratory distress, CTA bilaterally Extremities - no calf tenderness bilaterally, no swelling Skin - Warm/Dry Neurological - Alert & oriented x3 Psychological - Appropriate affect [facility] Medical History (Updated 04/08/25 @ 13:32 by BARRON Curry) Decreased hearing of left ear Osteoporosis Ascending aortic aneurysm Tubular adenoma of colon Elevated cholesterol HTN (hypertension) History of adenomatous polyp of colon Pulmonary nodules Surgical History Hx of appendectomy History of bunionectomy History of esophagogastroduodenoscopy (EGD) H/O colonoscopy (~01/28/21) Family History (Updated 04/08/25 @ 13:14 by Ivette Love MA) Mother No problems noted. Father No problems noted. Social History Housing: House Patient Tobacco Use Status: Former Tobacco user Years Smoked: 5 e-Cigarette/Vaping Use: Former Use service: No Current occupational status: retired Cognitive needs: No Hearing needs: No Vision needs: Yes (rx glasses) Questionnaire PHQ-9 Over the last 2 weeks, how often have you been bothered by any of the following problems? 1. Little interest or pleasure in doing things: not at all 2. Feeling down, depressed, or hopeless: not at all 3. Trouble falling or staying asleep, or sleeping too much: not at all 4. Feeling tired or having little energy: not at all 5. Poor appetite or overeating: not at all 6. Feeling bad about yourself - or that you are a failure or have let yourself or your family down: not at all 7. Trouble concentrating on things, such as reading the newspaper or watching television: not at all 8. Moving or speaking so slowly that other people could have noticed. Or the opposite - being so fidgety or restless that you have been moving around a lot more than usual: not at all 9. Thoughts that you would be better off or of hurting yourself in some way: not at all Total score: 0 Depression Screening Interpretation: Negative Depression Screening Done: Yes Source: Developed by Drs. Juan Kinsey, Boby Aiken and colleagues, with an educational jean-paul from [employer]. Thrive Questionnaire Date Thrive assessed: 04/08/25 I am a: Patient Within the past 12 months, did the food you bought not last and you didn't have the money to get more?: Never true Within the past 12 months, did you worry whether your food would run out before you got money to buy more?: Never true Do you have trouble paying for medicines?: No Do you have trouble getting transportation to medical appointments?: No Do you have trouble paying your heating and electricity bill?: No Do you have trouble taking care of your child, family member or friend?: No Do you have trouble with day-to-day activities such as bathing, preparing meals, shopping, managing finances, etc.?: No Are you currently unemployed and looking for a job?: No Are you interested in more education?: No THRIVE Score: 0 AUDIT C Alcohol Use Questionnaire (AUDIT-C) 1. How often do you have a drink containing alcohol?: Monthly or less 2. How many drinks containing alcohol do you have on a typical day when you are drinking?: 1 or 2 3. How often do you have six or more drinks on one occasion?: Less than monthly Total Score: 2 JEISON-7 AMB Questionnaire JEISON-7 Date JEISON - 7 assessed: 04/08/25 Feeling nervous, anxious, or on edge: 0 = Not at all Not being able to stop or control worryin = Not at all Worrying too much about different things: 0 = Not at all Trouble relaxin = Not at all Being so restless that it is hard to sit still: 0 = Not at all Becoming easily annoyed or irritable: 0 = Not at all Feeling afraid as if something awful might happen: 0 = Not at all Total JEISON-7 score (0-4 normal; 5-9 mild; 10-14 moderate; 15-21 severe): 0 Source: Developed by Sandrine Fischer Kurt Kroenke and colleagues, with an educational jean-paul from [employer]. Physical exam (Primary Care) Vital Signs: Last Vital Signs Temp 98.2 F 04/08/25 13:04 Pulse 73 04/08/25 13:04 BP 140/80 H 04/08/25 13:04 Pulse Ox 99 04/08/25 13:04 Oxygen Delivery Method Room Air 04/08/25 13:04 BMI result Body Mass Index 26.0 Tobacco/Smoking Status: Tobacco use Status Tobacco use date assessed 04/08/25 04/08/25 13:06 Patient Tobacco Use Status Former Tobacco user 04/08/25 13:06 e-Cigarette/Vaping Use Former Use 04/08/25 13:14 PHQ-9: PHQ-9 Score PHQ-9: Total score 0 04/08/25 13:14 Depression Screening Interpretation: Negative Thrive Assessment: Date of Thrive Assessment Date Thrive assessed 04/08/25 04/08/25 13:06 Coding Level of Care Code Est Pt Level 4 (34837) Add On Problem Visit Only Diagnoses Primary hypertension I10 Hypertension type: primary hypertension Elevated cholesterol E78.00 Ascending aortic aneurysm I71.21 Hearing loss of left ear due to cerumen impaction H61.22 Assessment & Plan Assessment & Plan (1) HTN (hypertension): Comment: - The patient presents with elevated blood pressure readings of 146/84 mmHg and subsequently in the 160s, while on losartan 75 mg. - The elevation may be exacerbated by recent stress. - The plan is to increase losartan to 100 mg daily. - The patient was advised to monitor her blood pressure at home, especially one hour after taking the medication, and watch for symptoms of hypotension such as dizziness. - She will follow up in one month to reassess control. Code(s): I10 - Essential (primary) hypertension Category: Medical Qualifiers: Hypertension type: primary hypertension Qualified Code(s): I10 - Essential (primary) hypertension Plan: Controlled on recheck. Continue losartan 100 mg daily. Continue checking blood pressures at home, if persistently elevated above 140/90, reach out to the office (2) Elevated cholesterol: Comment: - The patient is well-controlled on rosuvastatin 5 mg with a recent LDL of 81 mg/dL. - The plan is to continue the current medication. - Reassurance was provided that this medication is not the cause of her disequilibrium. Code(s): E78.00 - Pure hypercholesterolemia, unspecified Category: Medical Plan: Controlled. Continue rosuvastatin 5 mg daily (3) Ascending aortic aneurysm: Comment: 4.2cm, mild. Echo 02/18/25 Code(s): I71.21 - Aneurysm of the ascending aorta, without rupture Category: Medical Plan: Mild at 3.2 cm. Will continue following with echocardiograms. (4) Hearing loss of left ear due to cerumen impaction: Code(s): H61.22 - Impacted cerumen, left ear Plan: Cerumen removal performed in the office. Patient informed of potential risks. No adverse side effects. Unfortunately, cerumen was not able to be removed in the office. Recommend using Debrox drops for 3-5 days and returning to the office for nurse or MA visit to remove cerumen. Plan Follow-up in the office in 6 months. BMP to be performed today and additional labs to be completed several days prior to next visit. Orders: Orders Basic Metabolic Panel 6 Months E78.00 - Pure hypercholesterolemia, unspecified, I10 - Essential (primary) hypertension, M81.0 - Age-related osteoporosis without current pathological fracture Basic Metabolic Panel Today I10 - Essential (primary) hypertension Lipid Panel 6 Months E78.00 - Pure hypercholesterolemia, unspecified, I10 - Essential (primary) hypertension, M81.0 - Age-related osteoporosis without current pathological fracture Liver Panel 6 Months E78.00 - Pure hypercholesterolemia, unspecified, I10 - Essential (primary) hypertension, M81.0 - Age-related osteoporosis without current pathological fracture
[2025-04-08 13:38] VITALS: BP 128/78
--- OUTSIDE RECORDS SUMMARY | 2025-04-08 16:58 | XMS_ITS | Patient Health Record ---
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 wine Nonsmoker; occ. wine Problems Problem Type SNOMED Code ICD Code Onset Dates Problem Status W/U Status Risk Notes Problem Epigastric pain (76876804) Abdominal pain, epigastric (R10.13) Active confirmed Problem Gastroesophageal reflux disease without esophagitis ([id number]) Gastroesophageal reflux disease without esophagitis (K21.9) Active confirmed Plan Of Treatment Future Test Test Name Order Date UPPER GI ENDOSCOPY 05/29/2017 Insurance Providers Payer Name Payer Address Payer Phone Subscriber Number Group Number Insured Name Patient Relationship to Insured Coverage Start Date Coverage End Date [employer] [address] [place] [address] [id number] [place] Self - patient is the insured Medical (General) History Medical History History ICD Code Hypertension Denies MT,DM,CVA,Lung disease,renal dise ase Glaucoma Colonoscopy in 2015-Dr. Chou [facility]--small adenomas removed, including one from the [...]
== END 2025-04-08 13:43 | disposition home or self-care (01) ==
LOC: HO.HMCHD 12:54
PROVIDERS: PCP Student in an Organized Health Care Education/Training Program; Visit Provider Physician Assistant
DX: I10 Essential (primary) hypertension (principal); E78.00 Pure hypercholesterolemia, unspecified; I71.21 Aneurysm of the ascending aorta, without rupture; H61.22 Impacted cerumen, left ear